=== PATIENT | female | born 1935 | race African-American/Black ===

== ENCOUNTER 2020-05-15 11:20 | Inpatient (IN) | payer MEDICARE, MEDICAID ==
[~2020-05-15] VITALS: Ht 170.2 cm; Wt 81.2 kg
[2020-05-15] MEDS ORDERED: MORPHINE SULFATE 4 MG/ML CPJ (NOT FOR IM USE) IV STA (11:34)
[2020-05-15] MEDS ORDERED: SODIUM CHLORIDE 0.9% 250 ML IV ONE (11:45)
[2020-05-15 12:14] LABS: BASOPHILS % 0.5 % (0.0-2.0); EOSINOPHILS % 1.8 % (0.0-5.0); HEMATOCRIT. 36.6 % (36.0-48.0); LYMPHOCYTES % 19.7 % (20.0-50.0); MEAN CORPUSCULAR VOLUME 90.1 fL (81.0-99.0); MEAN PLATELET VOLUME 7.8 fl (7.4-10.4); PLATELET 159 x1000/uL (130-400); RED BLOOD CELL COUNT 4.06 mill/uL (4.2-5.4); RED CELL DISTRIBUTION WIDTH 19.7 % (11.6-14.6)
[2020-05-15 12:25] LABS: PROTHROMBIN TIME 11.1 sec (9.6-11.0)
[2020-05-15 12:27] LABS: CHLORIDE 110 mEq/L (98-107)
[2020-05-15] MEDS ORDERED: ASPIRIN 81MG TABLET PO NR (13:00)
[2020-05-15] MEDS ORDERED: FUROSEMIDE 40MG/4ML VIAL IVP NR (13:00)
[2020-05-15] MEDS ORDERED: AZITHROMYCIN 500 MG in DEXT 5% WATER 250 ML IV SCH (14:00)
[2020-05-15] MEDS ORDERED: GUAIFENESIN 200MG/10ML SUGAR FREE UDC PO PRN (14:30)
[2020-05-15] MEDS ORDERED: DIPHENHYDRAMINE 50MG/ML VIAL IV PRN (14:30)
[2020-05-15] MEDS ORDERED: LORAZEPAM 2MG/ML CPJ IV PRN (14:30)
[2020-05-15] MEDS ORDERED: MAGNESIUM/ALUMINUM HYDROXIDE/SIMETHICONE 30ML UDC PO PRN (14:30)
[2020-05-15] MEDS ORDERED: ACETAMINOPHEN 325MG TABLET PO PRN (14:30)
[2020-05-15] MEDS ORDERED: ONDANSETRON HCL 4MG/2ML INJ IV PRN (14:30)
[2020-05-15] MEDS ORDERED: NA PHOS,M-B/NA PHOS,DI-BA ENEMA 118ML PR PRN (14:30)
[2020-05-15] MEDS ORDERED: IPRATROPIUM/ALBUTEROL 0.5-3(2.5)MG/3ML NEB NEB PRN (14:30)
[2020-05-15] MEDS ORDERED: DOCUSATE SODIUM 100MG CAPSULE PO PRN (14:30)
[2020-05-15] MEDS: LEVOFLOXACIN 500MG PREMIX 100 ML IV SCH ×2 (15:51→16:22)
[2020-05-15] MEDS: ENOXAPARIN 40MG/0.4ML SYR SUBCUT SCH (15:52)
[2020-05-15] MEDS ORDERED: METRONIDAZOLE 500 MG PREMIX 100 ML IV SCH (16:00)
[2020-05-15 17:35] LABS: CHLORIDE 109 mEq/L (98-107)
[2020-05-15 20:00] VITALS: BP 161/98
[2020-05-15] MEDS: CLONIDINE 0.1MG TABLET PO PRN (21:52)
[2020-05-16 02:00] VITALS: BP 151/82
[2020-05-16 04:00] VITALS: BP 156/76
[2020-05-16] MEDS ORDERED: DEXTROSE 50% WATER 50ML SYRINGE IV PRN (04:15)
[2020-05-16] MEDS: BLOOD SUGAR DIAGNOSTIC STRIP TEST SCH ×4 (05:38→20:02)
[2020-05-16] MEDS: INSULIN LISPRO 100 UNITS/ML SUBCUT SCH ×4 (05:38→20:01)
[2020-05-16 06:11] LABS: CHLORIDE 110 mEq/L (98-107)
[2020-05-16 06:28] LABS: HDL CHOLESTEROL 50 mg/dL (40-59)
[2020-05-16 06:29] LABS: T4 FREE 1.42 ng/dL (0.76-1.46)
[2020-05-16 06:31] LABS: LDL CHOLESTEROL 54 mg/dL (5-100)
[2020-05-16 06:39] LABS: BASOPHILS % 0.6 % (0.0-2.0); EOSINOPHILS % 1.3 % (0.0-5.0); HEMATOCRIT. 34.6 % (36.0-48.0); HEMOGLOBIN. 10.2 g/dL (12.0-16.0); LYMPHOCYTES % 16.4 % (20.0-50.0); MEAN CORPUSCULAR HEMOGLOBIN 27.3 pg (28.0-32.0); MEAN CORPUSCULAR VOLUME 92.2 fL (81.0-99.0); MEAN PLATELET VOLUME 8.6 fl (7.4-10.4); MONOCYTES % 11.1 % (2.0-8.0); NEUTROPHILS % 70.6 % (40.0-76.0); PLATELET 143 x1000/uL (130-400); RED BLOOD CELL COUNT 3.75 mill/uL (4.2-5.4); RED CELL DISTRIBUTION WIDTH 20.3 % (11.6-14.6)
[2020-05-16 08:00] VITALS: BP 147/68
[2020-05-16] MEDS: ASPIRIN 81MG EC TABLET PO SCH (09:13)
[2020-05-16] MEDS: FUROSEMIDE 40MG/4ML VIAL IV SCH (09:13)
[2020-05-16 12:00] VITALS: BP 169/77
[2020-05-16] MEDS: METRONIDAZOLE 500 MG PREMIX 100 ML IV SCH ×2 (12:05→19:49)
[2020-05-16 13:03] LABS: T4 FREE 1.4 ng/dL (0.76-1.46)
[2020-05-16] MEDS: HYDROCODONE/ACETAMINOPHEN 5/325MG TABLET PO PRN ×2 (14:20→18:52)
[2020-05-16] MEDS: ENOXAPARIN 40MG/0.4ML SYR SUBCUT SCH (15:41)
[2020-05-16] MEDS: LEVOFLOXACIN 250MG PREMIX 50 ML IV SCH (15:41)
[2020-05-16] MEDS: CLONIDINE 0.1MG TABLET PO PRN ×2 (15:42→21:58)
[2020-05-16 16:00] VITALS: BP 170/90
[2020-05-16 17:49] LABS: CREATINE KINASE MB FRACTION 1.4 ng/mL (0.5-3.6)
[2020-05-16 20:00] VITALS: BP 176/91
[2020-05-16] MEDS: MORPHINE SULFATE 2 MG/ML CPJ (NOT FOR IM USE) IV PRN (21:47)
[2020-05-16 23:53] LABS: CREATINE KINASE MB FRACTION 1.2 ng/mL (0.5-3.6)
[2020-05-17] VITALS: BP 136/62
[2020-05-17] MEDS: METRONIDAZOLE 500 MG PREMIX 100 ML IV SCH ×3 (02:37→18:04)
[2020-05-17] MEDS: MORPHINE SULFATE 2 MG/ML CPJ (NOT FOR IM USE) IV PRN ×2 (03:05→08:31)
[2020-05-17 04:00] VITALS: BP 184/95
[2020-05-17] MEDS: CLONIDINE 0.1MG TABLET PO PRN (05:15)
[2020-05-17] MEDS: BLOOD SUGAR DIAGNOSTIC STRIP TEST SCH ×4 (06:15→20:05)
[2020-05-17 07:07] LABS: BASOPHILS % 0.8 % (0.0-2.0); EOSINOPHILS % 2.2 % (0.0-5.0); HEMATOCRIT. 32.4 % (36.0-48.0); HEMOGLOBIN. 9.9 g/dL (12.0-16.0); LYMPHOCYTES % 16.8 % (20.0-50.0); MEAN CORPUSCULAR HEMOGLOBIN 27.2 pg (28.0-32.0); MEAN CORPUSCULAR VOLUME 88.9 fL (81.0-99.0); MONOCYTES % 11.9 % (2.0-8.0); NEUTROPHILS % 68.3 % (40.0-76.0); PLATELET 139 x1000/uL (130-400); RED BLOOD CELL COUNT 3.64 mill/uL (4.2-5.4); RED CELL DISTRIBUTION WIDTH 19.5 % (11.6-14.6)
[2020-05-17 07:40] LABS: CHLORIDE 108 mEq/L (98-107)
[2020-05-17] MEDS: INSULIN LISPRO 100 UNITS/ML SUBCUT SCH ×4 (07:40→20:05)
[2020-05-17 08:00] VITALS: BP 124/82
[2020-05-17 08:00] LABS: CREATINE KINASE 39 IU/L (26-192)
[2020-05-17 08:06] LABS: CREATINE KINASE MB FRACTION 1.3 ng/mL (0.5-3.6)
[2020-05-17] MEDS: FUROSEMIDE 40MG/4ML VIAL IV SCH ×2 (08:28→20:05)
[2020-05-17] MEDS: ASPIRIN 81MG EC TABLET PO SCH ×2 (08:28→13:13)
[2020-05-17] MEDS ORDERED: ASPIRIN 81MG TABLET PO SCH (09:00)
[2020-05-17] MEDS: LOSARTAN POTASSIUM 25 MG TABLET PO SCH (10:22)
[2020-05-17 12:00] VITALS: BP 170/81
[2020-05-17] MEDS ORDERED: METOLAZONE 2.5MG TABLET PO SCH (14:00)
[2020-05-17] MEDS: LEVOFLOXACIN 250MG PREMIX 50 ML IV SCH (14:51)
[2020-05-17] MEDS: ENOXAPARIN 40MG/0.4ML SYR SUBCUT SCH (14:52)
[2020-05-17 16:00] VITALS: BP 142/76
[2020-05-17 20:00] VITALS: BP 163/73
[2020-05-17] MEDS: CARVEDILOL 6.25 MG TABLET PO SCH (20:04)
[2020-05-17] MEDS ORDERED: ATORVASTATIN CALCIUM 40MG TABLET PO SCH (21:00)
[2020-05-18] VITALS (7 sets, daily range): BP systolic 144–173; BP diastolic 65–92
[2020-05-18] MEDS: METRONIDAZOLE 500 MG PREMIX 100 ML IV SCH ×3 (02:17→11:00)
[2020-05-18] MEDS: BLOOD SUGAR DIAGNOSTIC STRIP TEST SCH ×2 (05:56→12:07)
[2020-05-18 07:24] LABS: BASOPHILS % 1.1 % (0.0-2.0); EOSINOPHILS % 1.6 % (0.0-5.0); HEMATOCRIT. 33.1 % (36.0-48.0); HEMOGLOBIN. 10.1 g/dL (12.0-16.0); LYMPHOCYTES % 16.3 % (20.0-50.0); MEAN CORPUSCULAR HEMOGLOBIN 26.7 pg (28.0-32.0); MEAN CORPUSCULAR VOLUME 87.4 fL (81.0-99.0); MEAN PLATELET VOLUME 8.4 fl (7.4-10.4); MONOCYTES % 13.3 % (2.0-8.0); NEUTROPHILS % 67.7 % (40.0-76.0); PLATELET 156 x1000/uL (130-400); RED BLOOD CELL COUNT 3.78 mill/uL (4.2-5.4); RED CELL DISTRIBUTION WIDTH 19.1 % (11.6-14.6)
[2020-05-18] MEDS: INSULIN LISPRO 100 UNITS/ML SUBCUT SCH ×2 (07:40→12:19)
[2020-05-18] MEDS: FUROSEMIDE 40MG/4ML VIAL IV SCH ×2 (09:00→09:06)
[2020-05-18] MEDS: LOSARTAN POTASSIUM 25 MG TABLET PO SCH (09:05)
[2020-05-18] MEDS: ASPIRIN 81MG EC TABLET PO SCH (09:06)
[2020-05-18] MEDS: CARVEDILOL 6.25 MG TABLET PO SCH ×2 (09:06→20:41)
[2020-05-18] MEDS ORDERED: METOLAZONE 2.5MG TABLET PO NR (11:23)
[2020-05-18] MEDS ORDERED: POTASSIUM CHLORIDE 20MEQ TABLET SR PO NR (11:30)
[2020-05-18] MEDS ORDERED: METR-167 MT (11:56)
[2020-05-18] MEDS ORDERED: LEVO500T89 MT (11:56)
[2020-05-18] MEDS: HYDROCODONE/ACETAMINOPHEN 5/325MG TABLET PO PRN (13:38)
[2020-05-18] MEDS ORDERED: LEVOFLOXACIN 250MG TABLET PO SCH (15:00)
[2020-05-18] MEDS: CLONIDINE 0.1MG TABLET PO PRN (18:36)
[2020-05-18] MEDS ORDERED: METRONIDAZOLE 500MG TABLET PO SCH (19:00)
[2020-05-19] MEDS ORDERED: LOSARTAN POTASSIUM 25 MG TABLET PO SCH (09:00)
== END 2020-05-18 21:30 | disposition home health service (06) | DRG 291 ==
LOC: ER 11:20 → 7WST 14:18 → EDBEDREQ 14:28 → EDBEDREQSVC 14:28 → ENRESERV 16:32 → 8WST 05-16 00:02
PROVIDERS: ADMIT Internal Medicine; ATTEND Internal Medicine
DX: I13.0 Hypertensive heart and chronic kidney disease with heart failure and stage 1 through stage 4 chronic kidney disease, or unspecified chronic kidney disease (principal); J96.20 Acute and chronic respiratory failure, unspecified whether with hypoxia or hypercapnia; G93.41 Metabolic encephalopathy; I50.23 Acute on chronic systolic (congestive) heart failure; R65.10 Systemic inflammatory response syndrome (SIRS) of non-infectious origin without acute organ dysfunction; E46 Unspecified protein-calorie malnutrition; K52.9 Noninfective gastroenteritis and colitis, unspecified; K57.30 Diverticulosis of large intestine without perforation or abscess without bleeding; D64.9 Anemia, unspecified; R26.89 Other abnormalities of gait and mobility; E78.5 Hyperlipidemia, unspecified; I25.10 Atherosclerotic heart disease of native coronary artery without angina pectoris; I27.20 Pulmonary hypertension, unspecified; K44.9 Diaphragmatic hernia without obstruction or gangrene; Z20.822 Contact with and (suspected) exposure to COVID-19; E11.22 Type 2 diabetes mellitus with diabetic chronic kidney disease; I25.5 Ischemic cardiomyopathy; N18.9 Chronic kidney disease, unspecified; S81.802A Unspecified open wound, left lower leg, initial encounter; E11.51 Type 2 diabetes mellitus with diabetic peripheral angiopathy without gangrene; G47.33 Obstructive sleep apnea (adult) (pediatric); Z60.2 Problems related to living alone; Z89.511 Acquired absence of right leg below knee; I25.2 Old myocardial infarction; Z86.73 Personal history of transient ischemic attack (TIA), and cerebral infarction without residual deficits; Z87.891 Personal history of nicotine dependence; Z88.0 Allergy status to penicillin; X58.XXXA Exposure to other specified factors, initial encounter; Y93.89 Activity, other specified; Y92.89 Other specified places as the place of occurrence of the external cause; Y99.8 Other external cause status; Z68.28 Body mass index [BMI] 28.0-28.9, adult; J44.9 Chronic obstructive pulmonary disease, unspecified; R60.1 Generalized edema
CPT/HCPCS: 36415; 71045; 74176; 76604; 80048; 80053; 80061; 82550; 82553; 82962; 83036; 83605; 83615; 83735; 83880; 84145; 84439; 84443; 84484; 85025; 85379; 85651; 86038; 86430; 93005; 93306; 93970; 93971; 94640; 97162; 99291; J0456; J1200; J1650; J1940; J1956; J2270; J3490; J7040; J7050; J7060; U0003

== ENCOUNTER 2020-09-23 08:03 | Inpatient (IN) | payer MEDICARE, MEDICAID ==
[~2020-09-23] VITALS: Ht 162.6 cm; Wt 57.7 kg
[~2020-09-23 08:03] MED LIST: LEVO500T89 MT; METR-167 MT
[2020-09-23 08:58] LABS: CHLORIDE 110 mEq/L (98-107)
[2020-09-23 09:02] LABS: BASOPHILS % 0.7 % (0.0-2.0); EOSINOPHILS % 0.8 % (0.0-5.0); HEMATOCRIT. 37.4 % (36.0-48.0); HEMOGLOBIN. 12.1 g/dL (12.0-16.0); LYMPHOCYTES % 12.1 % (20.0-50.0); MEAN CORPUSCULAR HEMOGLOBIN 29.9 pg (28.0-32.0); MEAN CORPUSCULAR VOLUME 92.8 fL (81.0-99.0); MEAN PLATELET VOLUME 8.3 fl (7.4-10.4); NEUTROPHILS % 78.4 % (40.0-76.0); PLATELET 211 x1000/uL (130-400); RED BLOOD CELL COUNT 4.03 mill/uL (4.2-5.4); RED CELL DISTRIBUTION WIDTH 16.7 % (11.6-14.6)
[2020-09-23] MEDS ORDERED: FUROSEMIDE 40MG/4ML VIAL IV ONE (10:00)
[2020-09-23] MEDS: ASPIRIN 81MG TABLET PO ONE ×2 (10:00→11:08)
[2020-09-23] MEDS ORDERED: ENOXAPARIN 100MG/ML SYR SUBCUT ONE (10:00)
[2020-09-23] MEDS ORDERED: LORAZEPAM 1MG TABLET PO ONE (11:00)
[2020-09-23 11:14] LABS: BG BASE EXCESS -1.3 mmol/L (-2.0-2.0); BG CARBOXYHEMOGLOBIN 0.3 % (0.5-1.5); BG HCO3 ACT 26.7 mmol/L (22.0-26.0); BG METHEMOGLOBIN 0.3 % (0.0-1.5); BG OXYHEMOGLOBIN 95.4 % (94.0-97.0); BG PCO2 59.4 mmHg (35.0-45.0); BG PO2 93.7 mmHg (75.0-100.0); BG SAMPLE SITE RIGHT RADIAL; BG VENT MODE NASAL CANNULA
[2020-09-23] MEDS ORDERED: CARVEDILOL 6.25 MG TABLET PO NR (17:00)
[2020-09-23] MEDS ORDERED: IPRATROPIUM/ALBUTEROL 0.5-3(2.5)MG/3ML NEB NEB PRN (19:00)
[2020-09-23] MEDS ORDERED: MAGNESIUM/ALUMINUM HYDROXIDE/SIMETHICONE 30ML UDC PO PRN (19:00)
[2020-09-23] MEDS ORDERED: DIPHENHYDRAMINE 50MG/ML VIAL IV PRN (19:00)
[2020-09-23] MEDS ORDERED: DEXTROSE 50% WATER 50ML SYRINGE IV PRN (19:00)
[2020-09-23] MEDS ORDERED: ONDANSETRON HCL 4MG/2ML INJ IV PRN (19:00)
[2020-09-23] MEDS ORDERED: ACETAMINOPHEN 325MG TABLET PO PRN ×2 (19:00)
[2020-09-23] MEDS ORDERED: HYDRALAZINE 20MG/ML VIAL IV PRN ×3 (19:00→19:15)
[2020-09-23] MEDS ORDERED: ZOLPIDEM TARTRATE 5MG TABLET PO PRN (19:00)
[2020-09-23] MEDS ORDERED: LOSARTAN POTASSIUM 50 MG TABLET PO NR (19:13)
[2020-09-23] MEDS ORDERED: HYDRALAZINE 20MG/ML VIAL IV NR (19:15)
[2020-09-23] MEDS: IPRATROPIUM/ALBUTEROL 0.5-3(2.5)MG/3ML NEB HHN SCH (19:37)
[2020-09-23 20:00] VITALS: BP 186/122
[2020-09-23] MEDS: FUROSEMIDE 40MG/4ML VIAL IVP SCH (20:23)
[2020-09-23] MEDS: CARVEDILOL 6.25 MG TABLET PO SCH (20:24)
[2020-09-23] MEDS: ATORVASTATIN CALCIUM 40MG TABLET PO SCH (20:24)
[2020-09-23] MEDS: BLOOD SUGAR DIAGNOSTIC STRIP TEST SCH (20:46)
[2020-09-23] MEDS: INSULIN LISPRO 100 UNITS/ML SUBCUT SCH (20:46)
[2020-09-23 21:00] VITALS: BP 186/122
[2020-09-23] MEDS ORDERED: FUROSEMIDE 40MG/4ML VIAL IVP SCH (22:00)
[2020-09-23] MEDS: SODIUM CHLORIDE 0.9% INJ 3ML FLUSH IVF SCH (22:00)
[2020-09-24] VITALS (7 sets, daily range): BP systolic 116–137; BP diastolic 59–73
[2020-09-24] MEDS: IPRATROPIUM/ALBUTEROL 0.5-3(2.5)MG/3ML NEB HHN SCH ×4 (02:19→21:17)
[2020-09-24] MEDS: FUROSEMIDE 40MG/4ML VIAL IVP SCH ×3 (02:52→18:43)
[2020-09-24] MEDS: BLOOD SUGAR DIAGNOSTIC STRIP TEST SCH ×4 (05:45→21:01)
[2020-09-24] MEDS: INSULIN LISPRO 100 UNITS/ML SUBCUT SCH ×4 (05:45→21:00)
[2020-09-24] MEDS: SODIUM CHLORIDE 0.9% INJ 3ML FLUSH IVF SCH ×2 (06:18→13:21)
[2020-09-24 07:26] LABS: BASOPHILS % 0.5 % (0.0-2.0); CHLORIDE 109 mEq/L (98-107); EOSINOPHILS % 0.4 % (0.0-5.0); HEMATOCRIT. 37.2 % (36.0-48.0); HEMOGLOBIN. 11.9 g/dL (12.0-16.0); LYMPHOCYTES % 14.3 % (20.0-50.0); MEAN CORPUSCULAR HEMOGLOBIN 29.5 pg (28.0-32.0); MEAN PLATELET VOLUME 8.6 fl (7.4-10.4); MONOCYTES % 8.4 % (2.0-8.0); NEUTROPHILS % 76.4 % (40.0-76.0); PLATELET 201 x1000/uL (130-400); RED BLOOD CELL COUNT 4.04 mill/uL (4.2-5.4); RED CELL DISTRIBUTION WIDTH 16.6 % (11.6-14.6)
[2020-09-24] MEDS ORDERED: LOSARTAN POTASSIUM 25 MG TABLET PO SCH (09:00)
[2020-09-24] MEDS ORDERED: ENOXAPARIN 40MG/0.4ML SYR SUBCUT SCH (09:00)
[2020-09-24] MEDS: ASPIRIN 81MG EC TABLET PO SCH (09:53)
[2020-09-24] MEDS: CARVEDILOL 6.25 MG TABLET PO SCH ×2 (09:53→21:00)
[2020-09-24] MEDS ORDERED: POTASSIUM CHLORIDE 20MEQ TABLET SR PO NR (10:45)
[2020-09-24] MEDS ORDERED: LOSARTAN POTASSIUM 25 MG TABLET PO NR (10:45)
[2020-09-24] MEDS ORDERED: MAGNESIUM 1 G PREMIX 100 ML IV SCH (12:00)
[2020-09-24] MEDS: ATORVASTATIN CALCIUM 40MG TABLET PO SCH (21:01)
[2020-09-25] VITALS (8 sets, daily range): BP systolic 105–171; BP diastolic 56–96
[2020-09-25] MEDS: IPRATROPIUM/ALBUTEROL 0.5-3(2.5)MG/3ML NEB HHN SCH ×4 (02:15→20:55)
[2020-09-25] MEDS: SODIUM CHLORIDE 0.9% INJ 3ML FLUSH IVF SCH ×4 (03:46→21:02)
[2020-09-25] MEDS: FUROSEMIDE 40MG/4ML VIAL IVP SCH ×3 (03:47→18:17)
[2020-09-25] MEDS: GUAIFENESIN 200MG/10ML SUGAR FREE UDC PO PRN ×2 (03:54→08:41)
[2020-09-25] MEDS: BLOOD SUGAR DIAGNOSTIC STRIP TEST SCH ×4 (05:57→20:29)
[2020-09-25] MEDS: INSULIN LISPRO 100 UNITS/ML SUBCUT SCH ×4 (05:57→20:29)
[2020-09-25 08:15] LABS: BASOPHILS % 0.6 % (0.0-2.0); HEMATOCRIT. 36.4 % (36.0-48.0); HEMOGLOBIN. 11.6 g/dL (12.0-16.0); LYMPHOCYTES % 18.5 % (20.0-50.0); MEAN CORPUSCULAR HEMOGLOBIN 29.7 pg (28.0-32.0); MEAN CORPUSCULAR VOLUME 93.4 fL (81.0-99.0); MEAN PLATELET VOLUME 9.1 fl (7.4-10.4); MONOCYTES % 10.2 % (2.0-8.0); NEUTROPHILS % 69.7 % (40.0-76.0); PLATELET 200 x1000/uL (130-400); RED BLOOD CELL COUNT 3.89 mill/uL (4.2-5.4); RED CELL DISTRIBUTION WIDTH 16.4 % (11.6-14.6)
[2020-09-25] MEDS: LOSARTAN POTASSIUM 50 MG TABLET PO SCH (08:41)
[2020-09-25] MEDS: CARVEDILOL 6.25 MG TABLET PO SCH ×2 (08:41→20:59)
[2020-09-25] MEDS: ENOXAPARIN 30MG/0.3ML SYR SUBCUT SCH (08:41)
[2020-09-25] MEDS: ASPIRIN 81MG EC TABLET PO SCH (08:41)
[2020-09-25] MEDS ORDERED: MAGNESIUM HYDROXIDE 400MG/5ML 30ML UDC PO NR (17:30)
[2020-09-25] MEDS ORDERED: BISACODYL 10MG SUPP PR NR (17:30)
[2020-09-25] MEDS: CLONIDINE 0.1MG TABLET PO PRN (17:45)
[2020-09-25] MEDS: ATORVASTATIN CALCIUM 40MG TABLET PO SCH (21:02)
[2020-09-26] VITALS (7 sets, daily range): BP systolic 115–165; BP diastolic 65–84
[2020-09-26] MEDS: IPRATROPIUM/ALBUTEROL 0.5-3(2.5)MG/3ML NEB HHN SCH ×3 (02:12→15:02)
[2020-09-26] MEDS: FUROSEMIDE 40MG/4ML VIAL IVP SCH ×2 (02:38→11:35)
[2020-09-26] MEDS: GUAIFENESIN 200MG/10ML SUGAR FREE UDC PO PRN (02:38)
[2020-09-26] MEDS: CLONIDINE 0.1MG TABLET PO PRN (02:38)
[2020-09-26] MEDS: SODIUM CHLORIDE 0.9% INJ 3ML FLUSH IVF SCH ×2 (06:00→14:26)
[2020-09-26] MEDS: INSULIN LISPRO 100 UNITS/ML SUBCUT SCH ×3 (06:25→17:40)
[2020-09-26] MEDS: BLOOD SUGAR DIAGNOSTIC STRIP TEST SCH ×3 (06:25→18:08)
[2020-09-26 07:03] LABS: BASOPHILS % 0.6 % (0.0-2.0); EOSINOPHILS % 1.2 % (0.0-5.0); HEMOGLOBIN. 11.3 g/dL (12.0-16.0); LYMPHOCYTES % 20.7 % (20.0-50.0); MEAN CORPUSCULAR HEMOGLOBIN 29.6 pg (28.0-32.0); MEAN CORPUSCULAR VOLUME 91.6 fL (81.0-99.0); MEAN PLATELET VOLUME 8.7 fl (7.4-10.4); MONOCYTES % 11.8 % (2.0-8.0); NEUTROPHILS % 65.7 % (40.0-76.0); PLATELET 216 x1000/uL (130-400); RED BLOOD CELL COUNT 3.82 mill/uL (4.2-5.4); RED CELL DISTRIBUTION WIDTH 16.5 % (11.6-14.6)
[2020-09-26] MEDS: ASPIRIN 81MG EC TABLET PO SCH (09:27)
[2020-09-26] MEDS: CARVEDILOL 6.25 MG TABLET PO SCH (09:27)
[2020-09-26] MEDS: LOSARTAN POTASSIUM 50 MG TABLET PO SCH (09:27)
[2020-09-26] MEDS: ENOXAPARIN 30MG/0.3ML SYR SUBCUT SCH (09:28)
== END 2020-09-26 19:00 | disposition home or self-care (01) | DRG 291 ==
LOC: ER 08:03 → EDBEDREQTM 11:44 → EDBEDREQ 11:44 → ENRESERV 15:32 → 8WST 18:26
PROVIDERS: ADMIT Internal Medicine; ATTEND Internal Medicine
DX: I11.0 Hypertensive heart disease with heart failure (principal); J96.01 Acute respiratory failure with hypoxia; J44.1 Chronic obstructive pulmonary disease with (acute) exacerbation; I50.23 Acute on chronic systolic (congestive) heart failure; I25.10 Atherosclerotic heart disease of native coronary artery without angina pectoris; I27.20 Pulmonary hypertension, unspecified; F17.200 Nicotine dependence, unspecified, uncomplicated; D64.9 Anemia, unspecified; E11.51 Type 2 diabetes mellitus with diabetic peripheral angiopathy without gangrene; Z20.822 Contact with and (suspected) exposure to COVID-19; I25.5 Ischemic cardiomyopathy; Z60.2 Problems related to living alone; Z89.511 Acquired absence of right leg below knee; I25.2 Old myocardial infarction; Z86.73 Personal history of transient ischemic attack (TIA), and cerebral infarction without residual deficits; Z88.0 Allergy status to penicillin; Z88.5 Allergy status to narcotic agent; Z79.82 Long term (current) use of aspirin; K57.90 Diverticulosis of intestine, part unspecified, without perforation or abscess without bleeding; Z71.6 Tobacco abuse counseling
CPT/HCPCS: 36415; 36600; 71045; 80048; 80053; 82375; 82805; 82962; 83735; 83880; 84484; 85025; 87426; 93005; 93306; 99291; J0360; J1200; J1650; J1940; J3475

== ENCOUNTER 2020-10-18 19:30 | Emergency (ER) | payer MEDICARE, MEDICAID ==
[~2020-10-18] VITALS: Ht 167.6 cm; Wt 70.0 kg
[2020-10-18 23:46] LABS: BASOPHILS % 0.7 % (0.0-2.0); EOSINOPHILS % 1.9 % (0.0-5.0); HEMATOCRIT. 38.1 % (36.0-48.0); HEMOGLOBIN. 12.4 g/dL (12.0-16.0); MEAN CORPUSCULAR HEMOGLOBIN 30.4 pg (28.0-32.0); MEAN CORPUSCULAR VOLUME 93.7 fL (81.0-99.0); MEAN PLATELET VOLUME 8.2 fl (7.4-10.4); MONOCYTES % 8.3 % (2.0-8.0); NEUTROPHILS % 64.1 % (40.0-76.0); PLATELET 167 x1000/uL (130-400); RED BLOOD CELL COUNT 4.06 mill/uL (4.2-5.4); RED CELL DISTRIBUTION WIDTH 16.9 % (11.6-14.6)
[2020-10-18 23:58] LABS: CHLORIDE 110 mEq/L (98-107)
[2020-10-19] MEDS ORDERED: FUROSEMIDE 20MG/2ML VIAL IVP ONE (01:15)
[2020-10-19 10:27] VITALS: BP 167/88
== END 2020-10-19 11:05 | disposition home or self-care (01) ==
LOC: ER 19:30
DX: R06.02 Shortness of breath (principal); I50.9 Heart failure, unspecified; J44.9 Chronic obstructive pulmonary disease, unspecified; I49.3 Ventricular premature depolarization; R03.0 Elevated blood-pressure reading, without diagnosis of hypertension; Z99.81 Dependence on supplemental oxygen
CPT/HCPCS: 36415; 71045; 80053; 83880; 85025; 93005; 96374; 99285; J1940

== ENCOUNTER 2020-11-07 14:33 | Inpatient (IN) | payer MEDICARE, MEDICAID ==
[~2020-11-07] VITALS: Ht 162.6 cm; Wt 62.6 kg
[2020-11-07 15:53] LABS: BASOPHILS % 0.7 % (0.0-2.0); EOSINOPHILS % 1.2 % (0.0-5.0); HEMATOCRIT. 34.6 % (36.0-48.0); HEMOGLOBIN. 11.6 g/dL (12.0-16.0); LYMPHOCYTES % 12.7 % (20.0-50.0); MEAN CORPUSCULAR HEMOGLOBIN 30.9 pg (28.0-32.0); MEAN CORPUSCULAR VOLUME 92.2 fL (81.0-99.0); MEAN PLATELET VOLUME 7.9 fl (7.4-10.4); MONOCYTES % 8.5 % (2.0-8.0); NEUTROPHILS % 76.9 % (40.0-76.0); PLATELET 187 x1000/uL (130-400); RED BLOOD CELL COUNT 3.75 mill/uL (4.2-5.4); RED CELL DISTRIBUTION WIDTH 17.4 % (11.6-14.6)
[2020-11-07 16:01] LABS: CHLORIDE 110 mEq/L (98-107)
[2020-11-07 16:05] LABS: PROTHROMBIN TIME 10.3 sec (9.6-11.0)
[2020-11-07] MEDS ORDERED: FUROSEMIDE 40MG/4ML VIAL IVP ONE (18:00)
[2020-11-07] MEDS ORDERED: MAGNESIUM/ALUMINUM HYDROXIDE/SIMETHICONE 30ML UDC PO PRN (18:15)
[2020-11-07] MEDS ORDERED: ACETAMINOPHEN 325MG TABLET PO PRN ×2 (18:15)
[2020-11-07] MEDS ORDERED: DOCUSATE SODIUM 100MG CAPSULE PO PRN (18:15)
[2020-11-07] MEDS ORDERED: ONDANSETRON HCL 4MG/2ML INJ IV PRN (18:15)
[2020-11-07] MEDS: FUROSEMIDE 40MG/4ML VIAL IV SCH (18:15)
[2020-11-07] MEDS: ASPIRIN 325MG EC TABLET PO ONE ×2 (18:17→18:27)
[2020-11-07] MEDS ORDERED: DEXTROSE 50% WATER 50ML SYRINGE IV PRN (19:00)
[2020-11-07] MEDS: CARVEDILOL 6.25 MG TABLET PO SCH (20:38)
[2020-11-07] MEDS: POTASSIUM CHLORIDE 20MEQ TABLET SR PO SCH (20:38)
[2020-11-07] MEDS: INSULIN LISPRO 100 UNITS/ML SUBCUT SCH (21:00)
[2020-11-07] MEDS: BLOOD SUGAR DIAGNOSTIC STRIP TEST SCH (21:22)
[2020-11-07] MEDS: ENOXAPARIN 40MG/0.4ML SYR SUBCUT SCH (21:30)
[2020-11-07] MEDS: ATORVASTATIN CALCIUM 20MG TABLET PO SCH (21:31)
[2020-11-07] MEDS: CLONIDINE 0.1MG TABLET PO PRN (21:39)
[2020-11-07 22:29] VITALS: BP 140/86
[2020-11-07 23:45] VITALS: BP 140/86
[2020-11-08 04:00] VITALS: BP 109/88
[2020-11-08 05:45] LABS: BASOPHILS % 0.4 % (0.0-2.0); EOSINOPHILS % 1.6 % (0.0-5.0); HEMATOCRIT. 36.6 % (36.0-48.0); HEMOGLOBIN. 11.7 g/dL (12.0-16.0); LYMPHOCYTES % 8.6 % (20.0-50.0); MEAN CORPUSCULAR HEMOGLOBIN 30.4 pg (28.0-32.0); MEAN CORPUSCULAR VOLUME 95.3 fL (81.0-99.0); MEAN PLATELET VOLUME 8.8 fl (7.4-10.4); MONOCYTES % 7.7 % (2.0-8.0); NEUTROPHILS % 81.7 % (40.0-76.0); PLATELET 176 x1000/uL (130-400); RED BLOOD CELL COUNT 3.84 mill/uL (4.2-5.4); RED CELL DISTRIBUTION WIDTH 17.4 % (11.6-14.6)
[2020-11-08 05:55] LABS: CHLORIDE 108 mEq/L (98-107)
[2020-11-08] MEDS: BLOOD SUGAR DIAGNOSTIC STRIP TEST SCH ×4 (05:56→20:58)
[2020-11-08] MEDS: INSULIN LISPRO 100 UNITS/ML SUBCUT SCH ×4 (05:56→20:57)
[2020-11-08 06:11] LABS: LDL CHOLESTEROL 86 mg/dL (5-100)
[2020-11-08 06:12] LABS: CREATINE KINASE 65 IU/L (26-192); HDL CHOLESTEROL 70 mg/dL (40-59)
[2020-11-08 08:00] VITALS: BP_SYST 169; BP_SYST 179; BP_DIAS 106; BP_DIAS 64
[2020-11-08] MEDS: POTASSIUM CHLORIDE 20MEQ TABLET SR PO SCH (09:09)
[2020-11-08] MEDS: ASPIRIN 81MG EC TABLET PO SCH (09:09)
[2020-11-08] MEDS: FUROSEMIDE 40MG/4ML VIAL IV SCH ×2 (09:10→17:51)
[2020-11-08] MEDS: CARVEDILOL 6.25 MG TABLET PO SCH ×2 (09:24→17:51)
[2020-11-08] MEDS: CLONIDINE 0.1MG TABLET PO PRN (09:25)
[2020-11-08] MEDS ORDERED: IPRATROPIUM/ALBUTEROL 0.5-3(2.5)MG/3ML NEB HHN PRN (10:00)
[2020-11-08] MEDS: LOSARTAN POTASSIUM 100 MG TABLET PO SCH (10:00)
[2020-11-08] MEDS ORDERED: HYDRALAZINE 20MG/ML VIAL IV NR (10:00)
[2020-11-08] MEDS ORDERED: HYDRALAZINE 20MG/ML VIAL IV PRN (10:00)
[2020-11-08 12:00] VITALS: BP 139/78
[2020-11-08 16:00] VITALS: BP 137/61
[2020-11-08 20:00] VITALS: BP 127/70
[2020-11-08] MEDS: ATORVASTATIN CALCIUM 20MG TABLET PO SCH (21:01)
[2020-11-08] MEDS: ENOXAPARIN 40MG/0.4ML SYR SUBCUT SCH (21:02)
[2020-11-08] MEDS: METHYLPREDNISOLONE SOD SUCC 40 MG/ML VIAL IV SCH (23:46)
[2020-11-09 00:12] VITALS: BP 119/77
[2020-11-09] MEDS: IPRATROPIUM/ALBUTEROL 0.5-3(2.5)MG/3ML NEB HHN SCH ×6 (01:35→20:09)
[2020-11-09 04:00] VITALS: BP 141/74
[2020-11-09 05:43] LABS: BASOPHILS % 0.2 % (0.0-2.0); EOSINOPHILS % 0.1 % (0.0-5.0); HEMATOCRIT. 33.8 % (36.0-48.0); HEMOGLOBIN. 11.2 g/dL (12.0-16.0); LYMPHOCYTES % 8.8 % (20.0-50.0); MEAN CORPUSCULAR HEMOGLOBIN 30.7 pg (28.0-32.0); MEAN CORPUSCULAR VOLUME 92.5 fL (81.0-99.0); MEAN PLATELET VOLUME 8.3 fl (7.4-10.4); MONOCYTES % 2.3 % (2.0-8.0); NEUTROPHILS % 88.6 % (40.0-76.0); PLATELET 178 x1000/uL (130-400); RED BLOOD CELL COUNT 3.66 mill/uL (4.2-5.4); RED CELL DISTRIBUTION WIDTH 17.3 % (11.6-14.6)
[2020-11-09] MEDS: BLOOD SUGAR DIAGNOSTIC STRIP TEST SCH ×4 (06:02→20:19)
[2020-11-09] MEDS: INSULIN LISPRO 100 UNITS/ML SUBCUT SCH ×4 (06:02→20:19)
[2020-11-09] MEDS: METHYLPREDNISOLONE SOD SUCC 40 MG/ML VIAL IV SCH ×3 (06:02→22:18)
[2020-11-09 08:00] VITALS: BP 132/75
[2020-11-09] MEDS: LOSARTAN POTASSIUM 100 MG TABLET PO SCH (09:00)
[2020-11-09] MEDS: ASPIRIN 81MG EC TABLET PO SCH (09:07)
[2020-11-09] MEDS: CARVEDILOL 6.25 MG TABLET PO SCH ×2 (09:07→16:27)
[2020-11-09] MEDS: POTASSIUM CHLORIDE 20MEQ TABLET SR PO SCH (09:07)
[2020-11-09] MEDS: FUROSEMIDE 40MG/4ML VIAL IV SCH ×2 (09:07→16:27)
[2020-11-09 12:00] VITALS: BP 158/94
[2020-11-09 16:00] VITALS: BP 145/58
[2020-11-09] MEDS: CLONIDINE 0.1MG TABLET PO PRN (16:21)
[2020-11-09] MEDS ORDERED: DOCUSATE SODIUM 100MG CAPSULE PEG PRN (17:15)
[2020-11-09] MEDS ORDERED: DOCUSATE SODIUM SUGAR FREE 100MG/10ML UDC PO PRN (17:30)
[2020-11-09 20:00] VITALS: BP 146/71
[2020-11-09] MEDS: ENOXAPARIN 30MG/0.3ML SYR SUBCUT SCH (20:23)
[2020-11-09] MEDS: ATORVASTATIN CALCIUM 20MG TABLET PO SCH (20:23)
[2020-11-10] VITALS: BP 153/80
[2020-11-10] MEDS: IPRATROPIUM/ALBUTEROL 0.5-3(2.5)MG/3ML NEB HHN SCH ×3 (01:03→16:00)
[2020-11-10 04:00] VITALS: BP 151/81
[2020-11-10] MEDS: INSULIN LISPRO 100 UNITS/ML SUBCUT SCH ×4 (05:58→21:30)
[2020-11-10] MEDS: BLOOD SUGAR DIAGNOSTIC STRIP TEST SCH ×4 (05:58→21:31)
[2020-11-10] MEDS: METHYLPREDNISOLONE SOD SUCC 40 MG/ML VIAL IV SCH ×3 (06:19→21:29)
[2020-11-10 07:29] LABS: BASOPHILS % 0.2 % (0.0-2.0); HEMATOCRIT. 34.3 % (36.0-48.0); HEMOGLOBIN. 11.4 g/dL (12.0-16.0); LYMPHOCYTES % 9.3 % (20.0-50.0); MEAN CORPUSCULAR HEMOGLOBIN 30.3 pg (28.0-32.0); MEAN CORPUSCULAR VOLUME 90.9 fL (81.0-99.0); MEAN PLATELET VOLUME 8.7 fl (7.4-10.4); MONOCYTES % 3.7 % (2.0-8.0); NEUTROPHILS % 86.8 % (40.0-76.0); PLATELET 201 x1000/uL (130-400); RED BLOOD CELL COUNT 3.77 mill/uL (4.2-5.4); RED CELL DISTRIBUTION WIDTH 17.3 % (11.6-14.6)
[2020-11-10 08:00] VITALS: BP 169/88
[2020-11-10] MEDS: ASPIRIN 81MG EC TABLET PO SCH (09:39)
[2020-11-10] MEDS: FUROSEMIDE 40MG/4ML VIAL IV SCH ×2 (09:39→17:00)
[2020-11-10] MEDS: CARVEDILOL 6.25 MG TABLET PO SCH ×2 (09:39→17:15)
[2020-11-10] MEDS: POTASSIUM CHLORIDE 20MEQ TABLET SR PO SCH (09:39)
[2020-11-10] MEDS: LOSARTAN POTASSIUM 50 MG TABLET PO SCH (09:39)
[2020-11-10 12:00] VITALS: BP 175/73
[2020-11-10] MEDS: CLONIDINE 0.1MG TABLET PO PRN ×2 (12:50→17:16)
[2020-11-10 16:00] VITALS: BP 162/81
[2020-11-10] MEDS: LACTULOSE 20G/30ML UDC PO SCH (18:00)
[2020-11-10 20:00] VITALS: BP 149/81
[2020-11-10] MEDS: ATORVASTATIN CALCIUM 20MG TABLET PO SCH (21:29)
[2020-11-10] MEDS: ENOXAPARIN 30MG/0.3ML SYR SUBCUT SCH (21:33)
[2020-11-11] VITALS: BP 131/74
[2020-11-11 04:00] VITALS: BP 168/83
[2020-11-11] MEDS: BLOOD SUGAR DIAGNOSTIC STRIP TEST SCH (05:18)
[2020-11-11] MEDS: METHYLPREDNISOLONE SOD SUCC 40 MG/ML VIAL IV SCH (05:18)
[2020-11-11] MEDS: CLONIDINE 0.1MG TABLET PO PRN (05:18)
[2020-11-11] MEDS: INSULIN LISPRO 100 UNITS/ML SUBCUT SCH (07:40)
[2020-11-11 08:00] VITALS: BP 156/86
[2020-11-11] MEDS: IPRATROPIUM/ALBUTEROL 0.5-3(2.5)MG/3ML NEB HHN SCH ×2 (08:24→12:39)
[2020-11-11] MEDS: LACTULOSE 20G/30ML UDC PO SCH (10:53)
[2020-11-11] MEDS: FUROSEMIDE 40MG/4ML VIAL IV SCH (10:54)
[2020-11-11] MEDS: POTASSIUM CHLORIDE 20MEQ TABLET SR PO SCH (10:54)
[2020-11-11] MEDS: LOSARTAN POTASSIUM 50 MG TABLET PO SCH (10:54)
[2020-11-11] MEDS: ASPIRIN 81MG EC TABLET PO SCH (10:54)
[2020-11-11] MEDS ORDERED: MED4 MT (11:48)
[2020-11-11 12:00] VITALS: BP 165/93
[2020-11-11 12:13] VITALS: BP 156/86
[2020-11-11] MEDS ORDERED: CARVEDILOL 6.25 MG TABLET PO SCH (17:00)
== END 2020-11-11 13:00 | disposition home health service (06) | DRG 291 ==
LOC: ER 14:33 → 8WST 17:52 → ENRESERV 20:35
PROVIDERS: ADMIT Internal Medicine; ATTEND Internal Medicine
PROC: 5A09357 Assistance with Respiratory Ventilation, Less than 24 Consecutive Hours, Continuous Positive Airway Pressure (ICD-10-PCS; principal; 2020-11-07)
DX: I13.0 Hypertensive heart and chronic kidney disease with heart failure and stage 1 through stage 4 chronic kidney disease, or unspecified chronic kidney disease (principal); J96.01 Acute respiratory failure with hypoxia; E43 Unspecified severe protein-calorie malnutrition; I50.23 Acute on chronic systolic (congestive) heart failure; J44.1 Chronic obstructive pulmonary disease with (acute) exacerbation; D64.9 Anemia, unspecified; E11.51 Type 2 diabetes mellitus with diabetic peripheral angiopathy without gangrene; E11.621 Type 2 diabetes mellitus with foot ulcer; E78.5 Hyperlipidemia, unspecified; F17.200 Nicotine dependence, unspecified, uncomplicated; G54.6 Phantom limb syndrome with pain; G89.4 Chronic pain syndrome; I25.10 Atherosclerotic heart disease of native coronary artery without angina pectoris; I25.2 Old myocardial infarction; I25.5 Ischemic cardiomyopathy; I27.21 Secondary pulmonary arterial hypertension; R53.81 Other malaise; R26.9 Unspecified abnormalities of gait and mobility; I48.91 Unspecified atrial fibrillation; I87.2 Venous insufficiency (chronic) (peripheral); E11.22 Type 2 diabetes mellitus with diabetic chronic kidney disease; N18.9 Chronic kidney disease, unspecified; I49.3 Ventricular premature depolarization; L97.529 Non-pressure chronic ulcer of other part of left foot with unspecified severity; Z86.73 Personal history of transient ischemic attack (TIA), and cerebral infarction without residual deficits; Z89.511 Acquired absence of right leg below knee; Z99.81 Dependence on supplemental oxygen; Z88.6 Allergy status to analgesic agent; Z88.0 Allergy status to penicillin; Z79.2 Long term (current) use of antibiotics; Z79.899 Other long term (current) drug therapy; Z95.828 Presence of other vascular implants and grafts
CPT/HCPCS: 36415; 71045; 74018; 80048; 80053; 80061; 82550; 82962; 83036; 83735; 83880; 84484; 85025; 93005; 93922; 93970; 94640; 94660; 97162; 97165; 99291; J0360; J1650; J1815; J1940; J2920

== ENCOUNTER 2020-12-28 19:05 | Emergency (ER) | payer MEDICARE, MEDICAID ==
[~2020-12-28] VITALS: Ht 165.1 cm; Wt 69.0 kg
[~2020-12-28 19:05] MED LIST changes: +ASPI-1497 PO; +BISA-81 PO; +FURO-151 MT; +GABA-532 PO; +HYDR-4001 MT; -LEVO500T89 MT; +METO-539 MT; -METR-167 MT; +POTA10CA42 MT
[2020-12-28] MEDS ORDERED: PREDNISONE 20MG TABLET PO STA (20:15)
[2020-12-28] MEDS ORDERED: IPRATROPIUM BROMIDE (0.02%) 0.5MG/2.5ML NEB HHN STA (20:15)
[2020-12-28] MEDS ORDERED: ALBUTEROL (0.083%) 2.5MG/3ML NEB HHN STA (20:15)
[2020-12-28 21:56] LABS: BASOPHILS % 0.4 % (0.0-2.0); EOSINOPHILS % 1.9 % (0.0-5.0); HEMATOCRIT. 37.1 % (36.0-48.0); HEMOGLOBIN. 11.8 g/dL (12.0-16.0); LYMPHOCYTES % 29.4 % (20.0-50.0); MEAN CORPUSCULAR HEMOGLOBIN 29.6 pg (28.0-32.0); MEAN CORPUSCULAR VOLUME 93.2 fL (81.0-99.0); MEAN PLATELET VOLUME 8.2 fl (7.4-10.4); MONOCYTES % 11.4 % (2.0-8.0); NEUTROPHILS % 56.9 % (40.0-76.0); PLATELET 180 x1000/uL (130-400); RED BLOOD CELL COUNT 3.98 mill/uL (4.2-5.4); RED CELL DISTRIBUTION WIDTH 17.7 % (11.6-14.6)
[2020-12-28 21:59] LABS: CHLORIDE 111 mEq/L (98-107)
[2020-12-28 23:57] VITALS: BP 182/98
== END 2020-12-29 00:50 | disposition home or self-care (01) ==
LOC: ER 19:05
DX: R06.02 Shortness of breath (principal); R10.13 Epigastric pain; I13.0 Hypertensive heart and chronic kidney disease with heart failure and stage 1 through stage 4 chronic kidney disease, or unspecified chronic kidney disease; I50.9 Heart failure, unspecified; N18.9 Chronic kidney disease, unspecified; J44.9 Chronic obstructive pulmonary disease, unspecified; Z99.81 Dependence on supplemental oxygen; Z88.0 Allergy status to penicillin; Z88.5 Allergy status to narcotic agent; Z79.899 Other long term (current) drug therapy
CPT/HCPCS: 36415; 71045; 80053; 83690; 83880; 84484; 85025; 93005; 94640; 99285; J7512

== ENCOUNTER 2021-01-08 15:17 | Emergency (ER) | payer MEDICARE, MEDICAID ==
[~2021-01-08] VITALS: Ht 165.1 cm; Wt 91.0 kg
[2021-01-08] MEDS ORDERED: LIDOCAINE HCL 1% 20ML VIAL (Pyxis) INJ INFIL ONE (16:30)
[2021-01-08] MEDS ORDERED: ACETAMINOPHEN 325MG TABLET PO ONE (16:30)
[2021-01-08] MEDS ORDERED: LIDOCAINE HCL/PF 1% 10 MG/ML 5ML VIAL INFIL SCH (16:48)
[2021-01-08] MEDS ORDERED: SULF1TAB48 MT (19:21)
[2021-01-08] MEDS ORDERED: TOPUD MT (19:21)
[2021-01-08 19:42] VITALS: BP 186/88
[2021-01-20] MEDS ORDERED: lisinopril (17:40)
[2021-01-20] MEDS ORDERED: [UNRECOGNIZED DRUG - CODE] (17:40)
== END 2021-01-08 20:25 | disposition home or self-care (01) ==
LOC: ER 15:17
DX: S81.812A Laceration without foreign body, left lower leg, initial encounter (principal); X58.XXXA Exposure to other specified factors, initial encounter; Y93.89 Activity, other specified; Y92.89 Other specified places as the place of occurrence of the external cause; Y99.8 Other external cause status; Z88.0 Allergy status to penicillin; Z88.5 Allergy status to narcotic agent
CPT/HCPCS: 12001; 99283; J3490

== ENCOUNTER 2021-01-25 08:27 | Inpatient (IN) | payer MEDICARE, MEDICAID ==
[~2021-01-25] VITALS: Ht 154.9 cm; Wt 64.0 kg
[~2021-01-25 08:27] MED LIST changes: +SULF1TAB48 MT; +TOPUD MT; +[UNRECOGNIZED DRUG - CODE]; +lisinopril
[2021-01-25] MEDS ORDERED: ACETAMINOPHEN 325MG TABLET PO STA (08:48)
[2021-01-25 09:25] LABS: BASOPHILS % 0.5 % (0.0-2.0); EOSINOPHILS % 2.1 % (0.0-5.0); HEMATOCRIT. 42.3 % (36.0-48.0); HEMOGLOBIN. 13.4 g/dL (12.0-16.0); LYMPHOCYTES % 14.9 % (20.0-50.0); MEAN CORPUSCULAR HEMOGLOBIN 29.7 pg (28.0-32.0); MEAN CORPUSCULAR VOLUME 93.6 fL (81.0-99.0); MONOCYTES % 8.3 % (2.0-8.0); NEUTROPHILS % 74.2 % (40.0-76.0); RED BLOOD CELL COUNT 4.52 mill/uL (4.2-5.4); RED CELL DISTRIBUTION WIDTH 16.7 % (11.6-14.6)
[2021-01-25 09:29] LABS: CHLORIDE 102 mEq/L (98-107)
[2021-01-25 10:01] LABS: PLATELET 205 x1000/uL (130-400)
[2021-01-25] MEDS ORDERED: SODIUM CHLORIDE 0.9% 250 ML IV NR (10:45)
[2021-01-25 10:51] LABS: CREATINE KINASE 94 IU/L (26-192)
[2021-01-25 13:16] LABS: CLARITY URINE CLEAR (CLEAR); COLOR URINE YELLOW (YELLOW); KETONES URINE NEGATIVE (NEGATIVE); LEUKOCYTE ESTERASE URINE TRACE (NEGATIVE); NITRITE URINE NEGATIVE (NEGATIVE); OCCULT BLOOD URINE NEGATIVE (NEGATIVE); PH URINE 8.5 (4.5-8.0); PROTEIN URINE 1+ (NEGATIVE); SPECIFIC GRAVITY URINE 1.019 (1.005-1.030)
[2021-01-25 18:42] VITALS: BP 119/65
[2021-01-25 20:00] VITALS: BP 163/82
[2021-01-25] MEDS ORDERED: DEXTROSE 50% WATER 50ML SYRINGE IV PRN (20:30)
[2021-01-25] MEDS ORDERED: IPRATROPIUM/ALBUTEROL 0.5-3(2.5)MG/3ML NEB HHN PRN (20:30)
[2021-01-25] MEDS ORDERED: ACETAMINOPHEN 650MG/20.3ML UDC PO PRN (20:30)
[2021-01-25] MEDS ORDERED: NALOXONE HCL 0.4MG/ML VIAL IV PRN (20:45)
[2021-01-25] MEDS: INSULIN LISPRO 100 UNITS/ML SUBCUT SCH (21:00)
[2021-01-25] MEDS: BLOOD SUGAR DIAGNOSTIC STRIP TEST SCH (21:08)
[2021-01-25] MEDS: CLONIDINE 0.1MG TABLET PO PRN (21:09)
[2021-01-25] MEDS: HYDROCODONE/ACETAMINOPHEN 5/325MG TABLET PO PRN (23:46)
[2021-01-26] VITALS (8 sets, daily range): BP systolic 108–179; BP diastolic 50–87
[2021-01-26] MEDS: HYDROCODONE/ACETAMINOPHEN 5/325MG TABLET PO PRN ×2 (03:33→17:40)
[2021-01-26] MEDS: BLOOD SUGAR DIAGNOSTIC STRIP TEST SCH ×4 (07:10→21:00)
[2021-01-26] MEDS: INSULIN LISPRO 100 UNITS/ML SUBCUT SCH ×4 (07:40→21:00)
[2021-01-26] MEDS: ENOXAPARIN 30MG/0.3ML SYR SUBCUT SCH (09:40)
[2021-01-26] MEDS: AMLODIPINE 5MG TABLET PO SCH (14:15)
[2021-01-26] MEDS: LOSARTAN POTASSIUM 50 MG TABLET PO SCH (14:15)
[2021-01-26] MEDS: CLONIDINE 0.1MG TABLET PO PRN (17:42)
[2021-01-26] MEDS: CARVEDILOL 3.125 MG TABLET PO SCH (21:00)
[2021-01-26] MEDS: SILVER SULFADIAZINE 1% CREAM 50GM TOP SCH (21:27)
[2021-01-27] VITALS: BP 119/63
[2021-01-27] MEDS: HYDROCODONE/ACETAMINOPHEN 5/325MG TABLET PO PRN (02:59)
[2021-01-27 03:48] VITALS: BP 160/89
[2021-01-27] MEDS: INSULIN LISPRO 100 UNITS/ML SUBCUT SCH ×4 (05:15→20:56)
[2021-01-27] MEDS: BLOOD SUGAR DIAGNOSTIC STRIP TEST SCH ×4 (05:15→19:59)
[2021-01-27 08:00] VITALS: BP 187/91
[2021-01-27] MEDS: CLONIDINE 0.1MG TABLET PO PRN (10:04)
[2021-01-27] MEDS: ENOXAPARIN 30MG/0.3ML SYR SUBCUT SCH (10:04)
[2021-01-27] MEDS: LOSARTAN POTASSIUM 50 MG TABLET PO SCH (10:04)
[2021-01-27] MEDS: AMLODIPINE 5MG TABLET PO SCH (10:04)
[2021-01-27] MEDS: CARVEDILOL 3.125 MG TABLET PO SCH ×2 (10:04→20:56)
[2021-01-27] MEDS: SILVER SULFADIAZINE 1% CREAM 50GM TOP SCH (10:05)
[2021-01-27 12:00] VITALS: BP 140/77
[2021-01-27 14:53] LABS: FOLIC ACID (FOLATE) SERUM 19.3 ng/mL (>5.38)
[2021-01-27 16:00] VITALS: BP 116/94
[2021-01-27 20:00] VITALS: BP 159/69
[2021-01-28] VITALS: BP 160/66
[2021-01-28 04:00] VITALS: BP 170/75
[2021-01-28] MEDS: BLOOD SUGAR DIAGNOSTIC STRIP TEST SCH (05:44)
[2021-01-28] MEDS: INSULIN LISPRO 100 UNITS/ML SUBCUT SCH (05:44)
[2021-01-28] MEDS: CLONIDINE 0.1MG TABLET PO PRN (06:04)
[2021-01-28 08:00] VITALS: BP 156/72
[2021-01-28] MEDS ORDERED: LACTULOSE 20G/30ML UDC PO SCH (08:00)
[2021-01-28] MEDS: ENOXAPARIN 30MG/0.3ML SYR SUBCUT SCH (08:52)
[2021-01-28] MEDS: AMLODIPINE 5MG TABLET PO SCH (08:52)
[2021-01-28] MEDS: LOSARTAN POTASSIUM 50 MG TABLET PO SCH (08:52)
[2021-01-28] MEDS: CARVEDILOL 3.125 MG TABLET PO SCH (08:53)
[2021-01-28] MEDS: SILVER SULFADIAZINE 1% CREAM 50GM TOP SCH (09:06)
[2021-01-28 09:45] VITALS: BP 156/72
== END 2021-01-28 12:00 | disposition home or self-care (01) | DRG 71 ==
LOC: ER 08:55 → 8WST 13:20 → EDBEDREQ 13:22 → EDBEDREQTM 13:22 → ENRESERV 16:32
PROVIDERS: ADMIT Internal Medicine; ATTEND Internal Medicine
DX: G93.41 Metabolic encephalopathy (principal); N17.9 Acute kidney failure, unspecified; I13.0 Hypertensive heart and chronic kidney disease with heart failure and stage 1 through stage 4 chronic kidney disease, or unspecified chronic kidney disease; I50.22 Chronic systolic (congestive) heart failure; L97.929 Non-pressure chronic ulcer of unspecified part of left lower leg with unspecified severity; I16.0 Hypertensive urgency; N18.9 Chronic kidney disease, unspecified; E11.22 Type 2 diabetes mellitus with diabetic chronic kidney disease; F17.200 Nicotine dependence, unspecified, uncomplicated; D64.9 Anemia, unspecified; E11.51 Type 2 diabetes mellitus with diabetic peripheral angiopathy without gangrene; G54.6 Phantom limb syndrome with pain; G89.4 Chronic pain syndrome; I25.10 Atherosclerotic heart disease of native coronary artery without angina pectoris; J44.9 Chronic obstructive pulmonary disease, unspecified; Z89.611 Acquired absence of right leg above knee; Z99.81 Dependence on supplemental oxygen; Z86.73 Personal history of transient ischemic attack (TIA), and cerebral infarction without residual deficits; Z88.0 Allergy status to penicillin; Z88.5 Allergy status to narcotic agent
CPT/HCPCS: 36415; 73590; 80053; 81003; 82140; 82550; 82607; 82746; 82962; 83036; 84145; 84443; 84484; 85025; 93005; 97161; 97166; 99285; J1650

== ENCOUNTER 2021-02-11 15:35 | Inpatient (IN) | payer MEDICARE, MEDICAID ==
[~2021-02-11] VITALS: Ht 165.1 cm; Wt 64.0 kg
[2021-02-11] MEDS ORDERED: KETOROLAC 30MG/ML VIAL IV ONE (17:00)
[2021-02-11] MEDS ORDERED: METHYLPREDNISOLONE SOD SUCC 125 MG/2 ML VIAL IV STA (17:32)
[2021-02-11] MEDS ORDERED: ALBUTEROL (0.083%) 2.5MG/3ML NEB HHN STA (17:32)
[2021-02-11] MEDS ORDERED: IPRATROPIUM BROMIDE (0.02%) 0.5MG/2.5ML NEB HHN STA (17:32)
[2021-02-11 18:46] LABS: BASOPHILS % 0.8 % (0.0-2.0); EOSINOPHILS % 2.7 % (0.0-5.0); HEMATOCRIT. 33.8 % (36.0-48.0); HEMOGLOBIN. 10.8 g/dL (12.0-16.0); LYMPHOCYTES % 17.2 % (20.0-50.0); MEAN CORPUSCULAR HEMOGLOBIN 29.8 pg (28.0-32.0); MEAN CORPUSCULAR VOLUME 93.6 fL (81.0-99.0); MONOCYTES % 8.2 % (2.0-8.0); NEUTROPHILS % 71.1 % (40.0-76.0); RED BLOOD CELL COUNT 3.61 mill/uL (4.2-5.4); RED CELL DISTRIBUTION WIDTH 16.6 % (11.6-14.6)
[2021-02-11 18:54] LABS: CHLORIDE 111 mEq/L (98-107)
[2021-02-11 19:29] LABS: PLATELET 203 x1000/uL (130-400)
[2021-02-11] MEDS ORDERED: MORPHINE SULFATE 4 MG/ML CPJ (NOT FOR IM USE) IV ONE (20:15)
[2021-02-11] MEDS ORDERED: IOHEXOL-350 100 ML BOTTLE ONE (23:35)
[2021-02-12] VITALS (9 sets, daily range): BP systolic 149–188; BP diastolic 67–91
[2021-02-12] MEDS ORDERED: ONDANSETRON HCL 4MG/2ML INJ IV PRN (00:30)
[2021-02-12] MEDS ORDERED: DEXTROSE 50% WATER 50ML SYRINGE IV PRN (01:15)
[2021-02-12] MEDS: CLONIDINE 0.1MG TABLET PO PRN ×4 (01:23→17:10)
[2021-02-12] MEDS: INSULIN LISPRO 100 UNITS/ML SUBCUT SCH ×4 (05:38→21:00)
[2021-02-12] MEDS: BLOOD SUGAR DIAGNOSTIC STRIP TEST SCH ×4 (05:38→21:00)
[2021-02-12] MEDS: METHYLPREDNISOLONE SOD SUCC 40 MG/ML VIAL IV SCH ×3 (05:38→17:10)
[2021-02-12] MEDS: FUROSEMIDE 40MG/4ML VIAL IVP SCH (09:37)
[2021-02-12] MEDS: ENOXAPARIN 40MG/0.4ML SYR SUBCUT SCH (09:38)
[2021-02-12] MEDS: ACETAMINOPHEN 325MG TABLET PO PRN (17:10)
[2021-02-13] VITALS (7 sets, daily range): BP systolic 108–173; BP diastolic 75–94
[2021-02-13] MEDS: METHYLPREDNISOLONE SOD SUCC 40 MG/ML VIAL IV SCH ×4 (00:35→17:20)
[2021-02-13] MEDS: ACETAMINOPHEN 325MG TABLET PO PRN ×2 (03:55→18:42)
[2021-02-13] MEDS: CLONIDINE 0.1MG TABLET PO PRN (04:09)
[2021-02-13] MEDS: INSULIN LISPRO 100 UNITS/ML SUBCUT SCH ×4 (06:15→22:06)
[2021-02-13] MEDS: BLOOD SUGAR DIAGNOSTIC STRIP TEST SCH ×4 (06:15→21:00)
[2021-02-13 07:10] LABS: HEMATOCRIT. 30.3 % (36.0-48.0); HEMOGLOBIN. 9.5 g/dL (12.0-16.0); MEAN CORPUSCULAR HEMOGLOBIN 29.3 pg (28.0-32.0); MEAN PLATELET VOLUME 8.2 fl (7.4-10.4); PLATELET 192 x1000/uL (130-400); RED BLOOD CELL COUNT 3.25 mill/uL (4.2-5.4); RED CELL DISTRIBUTION WIDTH 16.9 % (11.6-14.6)
[2021-02-13] MEDS: FUROSEMIDE 40MG/4ML VIAL IVP SCH (08:59)
[2021-02-13] MEDS: ENOXAPARIN 40MG/0.4ML SYR SUBCUT SCH (08:59)
[2021-02-13] MEDS: IPRATROPIUM/ALBUTEROL 0.5-3(2.5)MG/3ML NEB NEB SCH ×4 (09:28→20:58)
[2021-02-13 16:29] LABS: PLATELET ESTIMATE NORMAL
[2021-02-13] MEDS: MORPHINE SULFATE 2 MG/ML CPJ (NOT FOR IM USE) IV PRN (22:04)
[2021-02-14] VITALS: BP 149/68
[2021-02-14] MEDS: METHYLPREDNISOLONE SOD SUCC 40 MG/ML VIAL IV SCH ×4 (00:17→17:06)
[2021-02-14] MEDS: IPRATROPIUM/ALBUTEROL 0.5-3(2.5)MG/3ML NEB NEB SCH ×5 (01:10→20:30)
[2021-02-14 04:00] VITALS: BP 156/72
[2021-02-14] MEDS: BLOOD SUGAR DIAGNOSTIC STRIP TEST SCH ×4 (06:23→21:18)
[2021-02-14] MEDS: INSULIN LISPRO 100 UNITS/ML SUBCUT SCH ×4 (06:23→21:46)
[2021-02-14 08:00] VITALS: BP 159/83
[2021-02-14] MEDS: FUROSEMIDE 40MG/4ML VIAL IVP SCH (08:28)
[2021-02-14] MEDS: ENOXAPARIN 40MG/0.4ML SYR SUBCUT SCH (08:28)
[2021-02-14 12:00] VITALS: BP 160/78
[2021-02-14 16:00] VITALS: BP 162/90
[2021-02-14] MEDS: ACETAMINOPHEN 325MG TABLET PO PRN (16:20)
[2021-02-14] MEDS: CLONIDINE 0.1MG TABLET PO PRN (16:26)
[2021-02-14 20:00] VITALS: BP 160/61
[2021-02-15] VITALS (7 sets, daily range): BP systolic 124–170; BP diastolic 67–99
[2021-02-15] MEDS: METHYLPREDNISOLONE SOD SUCC 40 MG/ML VIAL IV SCH ×4 (00:08→17:51)
[2021-02-15] MEDS: MORPHINE SULFATE 2 MG/ML CPJ (NOT FOR IM USE) IV PRN (00:09)
[2021-02-15] MEDS: IPRATROPIUM/ALBUTEROL 0.5-3(2.5)MG/3ML NEB NEB SCH ×5 (00:30→16:10)
[2021-02-15] MEDS: CLONIDINE 0.1MG TABLET PO PRN ×2 (04:43→19:49)
[2021-02-15] MEDS: BLOOD SUGAR DIAGNOSTIC STRIP TEST SCH ×3 (06:19→16:23)
[2021-02-15] MEDS: INSULIN LISPRO 100 UNITS/ML SUBCUT SCH ×3 (06:20→16:22)
[2021-02-15] MEDS: ENOXAPARIN 40MG/0.4ML SYR SUBCUT SCH (08:30)
[2021-02-15] MEDS: FUROSEMIDE 40MG/4ML VIAL IVP SCH (08:30)
== END 2021-02-15 20:08 | DRG 190 ==
LOC: ER 15:35 → 7EST 19:15 → ENRESERV 21:58
PROVIDERS: ADMIT Internal Medicine; ATTEND Internal Medicine
DX: J44.1 Chronic obstructive pulmonary disease with (acute) exacerbation (principal); I50.23 Acute on chronic systolic (congestive) heart failure; I13.0 Hypertensive heart and chronic kidney disease with heart failure and stage 1 through stage 4 chronic kidney disease, or unspecified chronic kidney disease; L97.929 Non-pressure chronic ulcer of unspecified part of left lower leg with unspecified severity; I11.0 Hypertensive heart disease with heart failure; E11.22 Type 2 diabetes mellitus with diabetic chronic kidney disease; E11.51 Type 2 diabetes mellitus with diabetic peripheral angiopathy without gangrene; N18.9 Chronic kidney disease, unspecified; Z86.73 Personal history of transient ischemic attack (TIA), and cerebral infarction without residual deficits; Z87.891 Personal history of nicotine dependence; Z89.511 Acquired absence of right leg below knee; Z99.81 Dependence on supplemental oxygen; Z88.5 Allergy status to narcotic agent; Z88.0 Allergy status to penicillin; Z79.899 Other long term (current) drug therapy; Z79.891 Long term (current) use of opiate analgesic; Z79.82 Long term (current) use of aspirin
CPT/HCPCS: 36415; 71045; 71275; 74177; 80048; 80053; 82962; 83036; 83880; 84484; 85025; 87426; 87804; 93005; 94640; 94644; 99285; J1650; J1815; J1885; J1940; J2270; J2405; J2920; J2930; Q9967

== ENCOUNTER 2021-04-18 11:52 | Inpatient (IN) | payer MEDICARE, MEDICAID ==
[~2021-04-18] VITALS: Ht 160 cm; Wt 48.8 kg
[~2021-04-18 11:52] MED LIST changes: +ATOR20TA65 MT; +CLOP75TA33 MT; -FURO-151 MT; +FURO20TA4 MT; -GABA-532 PO; +GABA-533 MT; +LOSA50TA41 MT; +MELA3TAB42 MT; +MONT10TA32 MT; -POTA10CA42 MT; +POTA20TA82 MT; +QUET25TA MT; -SULF1TAB48 MT; +ZINC220C6 PO; -[UNRECOGNIZED DRUG - CODE]; -lisinopril
[2021-04-18] MEDS ORDERED: ONDANSETRON HCL 4MG/2ML INJ IV STA (12:20)
[2021-04-18 13:06] LABS: BASOPHILS % 1.1 % (0.0-2.0); EOSINOPHILS % 2.7 % (0.0-5.0); HEMATOCRIT. 29.5 % (36.0-48.0); LYMPHOCYTES % 22.3 % (20.0-50.0); MEAN CORPUSCULAR HEMOGLOBIN 26.3 pg (28.0-32.0); MEAN CORPUSCULAR VOLUME 85.8 fL (81.0-99.0); MONOCYTES % 10.7 % (2.0-8.0); NEUTROPHILS % 63.2 % (40.0-76.0); PLATELET 307 x1000/uL (130-400); RED BLOOD CELL COUNT 3.44 mill/uL (4.2-5.4); RED CELL DISTRIBUTION WIDTH 17.5 % (11.6-14.6)
[2021-04-18 13:10] LABS: CHLORIDE 103 mEq/L (98-107)
[2021-04-18] MEDS ORDERED: IOHEXOL-300 100 ML BOTTLE ONE (18:50)
[2021-04-18] MEDS ORDERED: ACETAMINOPHEN 325MG TABLET PO PRN (22:00)
[2021-04-18] MEDS ORDERED: IPRATROPIUM/ALBUTEROL 0.5-3(2.5)MG/3ML NEB NEB PRN (22:00)
[2021-04-18] MEDS ORDERED: MORPHINE SULFATE 2 MG/ML CPJ (NOT FOR IM USE) IV PRN (22:00)
[2021-04-18] MEDS ORDERED: ONDANSETRON HCL 4MG/2ML INJ IV PRN (22:00)
[2021-04-18] MEDS ORDERED: NALOXONE HCL 0.4MG/ML VIAL IV PRN (22:15)
[2021-04-18] MEDS: HYDROCODONE/ACETAMINOPHEN 5/325MG TABLET PO PRN (22:42)
[2021-04-19 00:30] VITALS: BP 101/62
[2021-04-19 04:00] VITALS: BP 135/56
[2021-04-19] MEDS ORDERED: DEXTROSE 50% WATER 50ML SYRINGE IV PRN (05:00)
[2021-04-19] MEDS: BLOOD SUGAR DIAGNOSTIC STRIP TEST SCH ×4 (07:01→21:00)
[2021-04-19] MEDS: INSULIN LISPRO 100 UNITS/ML SUBCUT SCH ×4 (07:50→21:00)
[2021-04-19 09:39] VITALS: BP 128/59
[2021-04-19] MEDS: LOSARTAN POTASSIUM 50 MG TABLET PO SCH (10:09)
[2021-04-19] MEDS: ASPIRIN 81MG EC TABLET PO SCH (10:09)
[2021-04-19] MEDS: FUROSEMIDE 20MG TABLET PO SCH (10:10)
[2021-04-19] MEDS: ATORVASTATIN CALCIUM 20MG TABLET PO SCH (10:10)
[2021-04-19] MEDS: GABAPENTIN 400MG CAPSULE PO SCH (10:10)
[2021-04-19] MEDS: ZINC SULFATE 220 MG ( 50 ) CAPSULE PO SCH (10:11)
[2021-04-19] MEDS: CLOPIDOGREL 75MG TABLET PO SCH (10:11)
[2021-04-19] MEDS: QUETIAPINE FUMARATE 25MG TABLET PO SCH ×2 (10:12→18:10)
[2021-04-19] MEDS: METOPROLOL TARTRATE 50MG TABLET PO SCH ×2 (12:45→18:09)
[2021-04-19] MEDS: MONTELUKAST SODIUM 10MG TABLET PO SCH (18:10)
[2021-04-19] MEDS: HYDROCODONE/ACETAMINOPHEN 5/325MG TABLET PO PRN (18:12)
[2021-04-19 20:00] VITALS: BP 126/54
[2021-04-20] VITALS: BP 145/58
[2021-04-20 04:00] VITALS: BP 149/72
[2021-04-20] MEDS: INSULIN LISPRO 100 UNITS/ML SUBCUT SCH ×3 (07:50→17:50)
[2021-04-20] MEDS: BLOOD SUGAR DIAGNOSTIC STRIP TEST SCH ×3 (07:53→17:20)
[2021-04-20 08:00] VITALS: BP 108/54
[2021-04-20] MEDS: ZINC SULFATE 220 MG ( 50 ) CAPSULE PO SCH (09:46)
[2021-04-20] MEDS: ATORVASTATIN CALCIUM 20MG TABLET PO SCH (09:46)
[2021-04-20] MEDS: LOSARTAN POTASSIUM 50 MG TABLET PO SCH (09:47)
[2021-04-20] MEDS: CLOPIDOGREL 75MG TABLET PO SCH (09:47)
[2021-04-20] MEDS: METOPROLOL TARTRATE 50MG TABLET PO SCH ×2 (09:47→16:40)
[2021-04-20] MEDS: GABAPENTIN 400MG CAPSULE PO SCH (09:47)
[2021-04-20] MEDS: FUROSEMIDE 20MG TABLET PO SCH (09:47)
[2021-04-20] MEDS: QUETIAPINE FUMARATE 25MG TABLET PO SCH ×2 (09:47→16:40)
[2021-04-20] MEDS: ASPIRIN 81MG EC TABLET PO SCH (09:47)
[2021-04-20 12:00] VITALS: BP 107/50
[2021-04-20] MEDS ORDERED: HEPARIN 5000 UNITS/ML VIAL SUBCUT NR (13:15)
[2021-04-20 16:00] VITALS: BP 147/50
[2021-04-20] MEDS: MONTELUKAST SODIUM 10MG TABLET PO SCH (16:40)
[2021-04-20 18:22] VITALS: BP 147/50
== END 2021-04-20 19:50 | disposition home or self-care (01) | DRG 687 ==
LOC: ER 11:52 → 6EST 15:57 → ENRESERV 23:26
PROVIDERS: ADMIT Internal Medicine; ATTEND Internal Medicine
DX: C64.1 Malignant neoplasm of right kidney, except renal pelvis (principal); I13.0 Hypertensive heart and chronic kidney disease with heart failure and stage 1 through stage 4 chronic kidney disease, or unspecified chronic kidney disease; I50.22 Chronic systolic (congestive) heart failure; L97.929 Non-pressure chronic ulcer of unspecified part of left lower leg with unspecified severity; E11.22 Type 2 diabetes mellitus with diabetic chronic kidney disease; G89.29 Other chronic pain; F17.200 Nicotine dependence, unspecified, uncomplicated; N18.9 Chronic kidney disease, unspecified; N28.89 Other specified disorders of kidney and ureter; Z20.822 Contact with and (suspected) exposure to COVID-19; E11.51 Type 2 diabetes mellitus with diabetic peripheral angiopathy without gangrene; D64.9 Anemia, unspecified; J44.9 Chronic obstructive pulmonary disease, unspecified; Z88.0 Allergy status to penicillin; Z88.5 Allergy status to narcotic agent; Z88.6 Allergy status to analgesic agent; Z51.5 Encounter for palliative care; Z89.511 Acquired absence of right leg below knee
CPT/HCPCS: 36415; 74177; 80053; 82962; 83036; 85025; 87426; 93005; 99285; J1644; J2405; Q9967

== ENCOUNTER 2021-05-14 02:45 | Emergency (ER) | payer MEDICARE, MEDICAID ==
[~2021-05-14] VITALS: Ht 160 cm; Wt 70.0 kg
[2021-05-14] MEDS ORDERED: MORPHINE SULFATE 4 MG/ML CPJ (NOT FOR IM USE) IV STA (05:33)
[2021-05-14] MEDS ORDERED: FAMOTIDINE 20MG/2ML VIAL IV STA (05:33)
[2021-05-14] MEDS ORDERED: METOCLOPRAMIDE HCL 10MG/2ML VIAL IV ONE (06:15)
[2021-05-14 06:23] LABS: BASOPHILS % 0.7 % (0.0-2.0); EOSINOPHILS % 1.6 % (0.0-5.0); HEMATOCRIT. 26.2 % (36.0-48.0); LYMPHOCYTES % 17.1 % (20.0-50.0); MEAN CORPUSCULAR HEMOGLOBIN 24.8 pg (28.0-32.0); MEAN CORPUSCULAR VOLUME 81.1 fL (81.0-99.0); MEAN PLATELET VOLUME 8.4 fl (7.4-10.4); MONOCYTES % 9.1 % (2.0-8.0); NEUTROPHILS % 71.5 % (40.0-76.0); PLATELET 264 x1000/uL (130-400); RED BLOOD CELL COUNT 3.22 mill/uL (4.2-5.4); RED CELL DISTRIBUTION WIDTH 19.1 % (11.6-14.6)
[2021-05-14 06:28] LABS: CHLORIDE 109 mEq/L (98-107)
[2021-05-14] MEDS ORDERED: FAMO-135 MT (08:37)
[2021-05-14] MEDS ORDERED: HYDRALAZINE 20MG/ML VIAL IV ONE (08:45)
[2021-05-14 09:12] VITALS: BP 163/95
== END 2021-05-14 10:00 | disposition home or self-care (01) ==
LOC: ER 02:45
DX: R10.13 Epigastric pain (principal); I11.0 Hypertensive heart disease with heart failure; I50.9 Heart failure, unspecified; J44.9 Chronic obstructive pulmonary disease, unspecified; E11.9 Type 2 diabetes mellitus without complications; Z98.890 Other specified postprocedural states; F17.290 Nicotine dependence, other tobacco product, uncomplicated; Z79.899 Other long term (current) drug therapy
CPT/HCPCS: 36415; 71045; 80053; 83690; 83880; 84484; 85025; 93005; 96374; 96375; 99285; J0360; J2270; J2765; J3490

== ENCOUNTER 2021-06-07 20:34 | Inpatient (IN) | payer MEDICARE, MEDICAID ==
[~2021-06-07] VITALS: Ht 165.1 cm; Wt 65.4 kg
[~2021-06-07 20:34] MED LIST changes: +FAMO-135 MT
[2021-06-07] MEDS ORDERED: MORPHINE SULFATE 4 MG/ML CPJ (NOT FOR IM USE) IV STA (20:53)
[2021-06-07] MEDS ORDERED: ONDANSETRON HCL 4MG/2ML INJ IV STA (20:53)
[2021-06-07] MEDS ORDERED: SODIUM CHLORIDE 0.9% 1,000 ML IV ONE (21:00)
[2021-06-07 22:00] LABS: BASOPHILS % 0.4 % (0.0-2.0); EOSINOPHILS % 1.9 % (0.0-5.0); HEMATOCRIT. 27.2 % (36.0-48.0); HEMOGLOBIN. 8.3 g/dL (12.0-16.0); LYMPHOCYTES % 14.3 % (20.0-50.0); MEAN CORPUSCULAR VOLUME 78.2 fL (81.0-99.0); MEAN PLATELET VOLUME 7.7 fl (7.4-10.4); MONOCYTES % 8.9 % (2.0-8.0); NEUTROPHILS % 74.5 % (40.0-76.0); PLATELET 212 x1000/uL (130-400); RED BLOOD CELL COUNT 3.48 mill/uL (4.2-5.4); RED CELL DISTRIBUTION WIDTH 19.7 % (11.6-14.6)
[2021-06-07 22:08] LABS: CHLORIDE 106 mEq/L (98-107)
[2021-06-08 08:15] VITALS: BP 161/49
[2021-06-08] MEDS ORDERED: ACETAMINOPHEN 325MG TABLET PO PRN (09:45)
[2021-06-08] MEDS ORDERED: ONDANSETRON HCL 4MG/2ML INJ IV PRN (09:45)
[2021-06-08] MEDS ORDERED: CLONIDINE 0.1MG TABLET PO PRN (09:45)
[2021-06-08 12:00] VITALS: BP 162/43
[2021-06-08] MEDS ORDERED: BISACODYL 10MG SUPP PR NR (12:07)
[2021-06-08] MEDS ORDERED: MAGNESIUM CITRATE 300ML SOLUTION PO NR (12:30)
[2021-06-08] MEDS: ENOXAPARIN 40MG/0.4ML SYR SUBCUT SCH (14:40)
[2021-06-08] MEDS: METOPROLOL TARTRATE 50MG TABLET PO SCH ×2 (14:41→22:06)
[2021-06-08] MEDS: ASPIRIN 81MG EC TABLET PO SCH (14:41)
[2021-06-08] MEDS: LOSARTAN POTASSIUM 50 MG TABLET PO SCH (14:41)
[2021-06-08] MEDS: SODIUM CHLORIDE 0.9% 1,000 ML IV SCH ×2 (14:43→22:17)
[2021-06-08] MEDS: SORBITOL 70% SOLN 30ML PO SCH ×2 (14:56→18:30)
[2021-06-08] MEDS: METOCLOPRAMIDE HCL 10MG/2ML VIAL IV SCH ×3 (14:56→23:08)
[2021-06-08] MEDS: MORPHINE SULFATE 2 MG/ML CPJ (NOT FOR IM USE) IV PRN (15:23)
[2021-06-08 16:00] VITALS: BP 148/49
[2021-06-08 17:04] LABS: BASOPHILS % 1.1 % (0.0-2.0); EOSINOPHILS % 2.1 % (0.0-5.0); HEMOGLOBIN. 7.9 g/dL (12.0-16.0); LYMPHOCYTES % 12.1 % (20.0-50.0); MEAN CORPUSCULAR HEMOGLOBIN 23.3 pg (28.0-32.0); MEAN CORPUSCULAR VOLUME 79.8 fL (81.0-99.0); NEUTROPHILS % 73.7 % (40.0-76.0); PLATELET 204 x1000/uL (130-400); RED BLOOD CELL COUNT 3.38 mill/uL (4.2-5.4); RED CELL DISTRIBUTION WIDTH 19.7 % (11.6-14.6)
[2021-06-08 17:38] LABS: CHLORIDE 109 mEq/L (98-107)
[2021-06-08 20:00] VITALS: BP 158/70
[2021-06-08] MEDS ORDERED: MINERAL OIL ENEMA 133ML PR NR (22:00)
[2021-06-08] MEDS: PANTOPRAZOLE SODIUM 40 MG/VIAL IV SCH (22:05)
[2021-06-08] MEDS: QUETIAPINE FUMARATE 25MG TABLET PO SCH (22:05)
[2021-06-08] MEDS: ATORVASTATIN CALCIUM 20MG TABLET PO SCH (22:12)
[2021-06-09] VITALS: BP 117/49
[2021-06-09] MEDS: SORBITOL 70% SOLN 30ML PO SCH ×4 (00:04→18:11)
[2021-06-09] MEDS ORDERED: DEXTROSE 50% WATER 50ML SYRINGE IV PRN (02:15)
[2021-06-09 04:00] VITALS: BP 147/53
[2021-06-09] MEDS: METOCLOPRAMIDE HCL 10MG/2ML VIAL IV SCH ×4 (05:32→18:11)
[2021-06-09] MEDS: BLOOD SUGAR DIAGNOSTIC STRIP TEST SCH ×4 (05:39→21:15)
[2021-06-09] MEDS: INSULIN LISPRO 100 UNITS/ML SUBCUT SCH ×4 (07:40→21:00)
[2021-06-09 08:00] VITALS: BP 140/89
[2021-06-09 08:02] LABS: BASOPHILS % 0.8 % (0.0-2.0); EOSINOPHILS % 1.9 % (0.0-5.0); HEMATOCRIT. 27.8 % (36.0-48.0); HEMOGLOBIN. 8.1 g/dL (12.0-16.0); LYMPHOCYTES % 23.1 % (20.0-50.0); MEAN CORPUSCULAR HEMOGLOBIN 22.9 pg (28.0-32.0); MEAN CORPUSCULAR VOLUME 78.6 fL (81.0-99.0); MEAN PLATELET VOLUME 8.4 fl (7.4-10.4); MONOCYTES % 9.2 % (2.0-8.0); PLATELET 224 x1000/uL (130-400); RED BLOOD CELL COUNT 3.54 mill/uL (4.2-5.4); RED CELL DISTRIBUTION WIDTH 19.5 % (11.6-14.6)
[2021-06-09 08:35] LABS: CHLORIDE 110 mEq/L (98-107)
[2021-06-09] MEDS: FUROSEMIDE 20MG TABLET PO SCH (11:16)
[2021-06-09] MEDS: CLOPIDOGREL 75MG TABLET PO SCH (11:16)
[2021-06-09] MEDS: LOSARTAN POTASSIUM 50 MG TABLET PO SCH (11:16)
[2021-06-09] MEDS: BISACODYL 10MG SUPP PR SCH (11:16)
[2021-06-09] MEDS: ASPIRIN 81MG EC TABLET PO SCH (11:16)
[2021-06-09] MEDS: METOPROLOL TARTRATE 50MG TABLET PO SCH ×2 (11:17→21:15)
[2021-06-09] MEDS: PANTOPRAZOLE SODIUM 40 MG/VIAL IV SCH (11:17)
[2021-06-09] MEDS: GABAPENTIN 400MG CAPSULE PO SCH (11:18)
[2021-06-09] MEDS: ATORVASTATIN CALCIUM 20MG TABLET PO SCH (11:18)
[2021-06-09] MEDS: ENOXAPARIN 40MG/0.4ML SYR SUBCUT SCH (11:19)
[2021-06-09] MEDS: QUETIAPINE FUMARATE 25MG TABLET PO SCH ×2 (11:19→21:15)
[2021-06-09 12:00] VITALS: BP 116/75
[2021-06-09] MEDS: SODIUM CHLORIDE 0.9% 1,000 ML IV SCH (12:40)
[2021-06-09 16:00] VITALS: BP 123/85
[2021-06-09] MEDS ORDERED: MINERAL OIL ENEMA 133ML PR NR (17:00)
[2021-06-09] MEDS: BISACODYL 5MG TABLET PO SCH ×2 (18:10→21:13)
[2021-06-09 20:00] VITALS: BP 145/65
[2021-06-09] MEDS: SENNOSIDES/DOCUSATE SOD 8.6/50MG TABLET PO SCH (21:14)
[2021-06-10] VITALS: BP 154/85
[2021-06-10] MEDS: SORBITOL 70% SOLN 30ML PO SCH ×3 (00:55→12:19)
[2021-06-10] MEDS: METOCLOPRAMIDE HCL 10MG/2ML VIAL IV SCH ×4 (01:00→18:35)
[2021-06-10] MEDS: SODIUM CHLORIDE 0.9% 1,000 ML IV SCH ×2 (01:01→15:09)
[2021-06-10 04:00] VITALS: BP 156/68
[2021-06-10] MEDS: BISACODYL 5MG TABLET PO SCH ×4 (04:35→21:55)
[2021-06-10] MEDS: MORPHINE SULFATE 2 MG/ML CPJ (NOT FOR IM USE) IV PRN (05:45)
[2021-06-10] MEDS: BLOOD SUGAR DIAGNOSTIC STRIP TEST SCH ×4 (06:22→21:55)
[2021-06-10] MEDS: INSULIN LISPRO 100 UNITS/ML SUBCUT SCH ×4 (06:58→21:00)
[2021-06-10 08:00] VITALS: BP 155/73
[2021-06-10] MEDS: METOPROLOL TARTRATE 50MG TABLET PO SCH ×2 (09:54→21:54)
[2021-06-10] MEDS: ASPIRIN 81MG EC TABLET PO SCH (09:54)
[2021-06-10] MEDS: ENOXAPARIN 40MG/0.4ML SYR SUBCUT SCH (09:55)
[2021-06-10] MEDS: CLOPIDOGREL 75MG TABLET PO SCH (09:55)
[2021-06-10] MEDS: FUROSEMIDE 20MG TABLET PO SCH (09:55)
[2021-06-10] MEDS: BISACODYL 10MG SUPP PR SCH (09:55)
[2021-06-10] MEDS: LOSARTAN POTASSIUM 50 MG TABLET PO SCH (09:55)
[2021-06-10] MEDS: GABAPENTIN 400MG CAPSULE PO SCH (09:55)
[2021-06-10] MEDS: PANTOPRAZOLE SODIUM 40 MG/VIAL IV SCH (10:00)
[2021-06-10] MEDS: QUETIAPINE FUMARATE 25MG TABLET PO SCH ×2 (10:00→21:54)
[2021-06-10 12:00] VITALS: BP 130/49
[2021-06-10 16:00] VITALS: BP 130/70
[2021-06-10 20:00] VITALS: BP 164/84
[2021-06-10] MEDS: SENNOSIDES/DOCUSATE SOD 8.6/50MG TABLET PO SCH (21:00)
[2021-06-10] MEDS: ATORVASTATIN CALCIUM 20MG TABLET PO SCH (21:54)
[2021-06-11] VITALS: BP 128/59
[2021-06-11] MEDS: METOCLOPRAMIDE HCL 10MG/2ML VIAL IV SCH ×2 (00:01→05:32)
[2021-06-11 04:00] VITALS: BP 143/72
[2021-06-11] MEDS: SODIUM CHLORIDE 0.9% 1,000 ML IV SCH (04:12)
[2021-06-11] MEDS: BLOOD SUGAR DIAGNOSTIC STRIP TEST SCH (06:27)
[2021-06-11] MEDS: INSULIN LISPRO 100 UNITS/ML SUBCUT SCH (06:28)
[2021-06-11 08:00] VITALS: BP 158/60
[2021-06-11 08:21] LABS: BASOPHILS % 0.7 % (0.0-2.0); EOSINOPHILS % 2.6 % (0.0-5.0); HEMATOCRIT. 25.8 % (36.0-48.0); HEMOGLOBIN. 7.7 g/dL (12.0-16.0); LYMPHOCYTES % 21.2 % (20.0-50.0); MEAN CORPUSCULAR HEMOGLOBIN 22.9 pg (28.0-32.0); MEAN CORPUSCULAR VOLUME 76.5 fL (81.0-99.0); MEAN PLATELET VOLUME 8.1 fl (7.4-10.4); MONOCYTES % 10.7 % (2.0-8.0); NEUTROPHILS % 64.8 % (40.0-76.0); PLATELET 220 x1000/uL (130-400); RED BLOOD CELL COUNT 3.37 mill/uL (4.2-5.4); RED CELL DISTRIBUTION WIDTH 20.3 % (11.6-14.6)
[2021-06-11 08:55] LABS: FOLIC ACID (FOLATE) SERUM 17.3 ng/mL (>5.38)
[2021-06-11] MEDS ORDERED: SODIUM CHLORIDE 0.45% 1,000 ML IV SCH (09:00)
[2021-06-11] MEDS: ENOXAPARIN 40MG/0.4ML SYR SUBCUT SCH (09:06)
[2021-06-11] MEDS: ASPIRIN 81MG EC TABLET PO SCH (09:06)
[2021-06-11] MEDS: PANTOPRAZOLE SODIUM 40 MG/VIAL IV SCH (09:06)
[2021-06-11] MEDS: GABAPENTIN 400MG CAPSULE PO SCH (09:06)
[2021-06-11] MEDS: LOSARTAN POTASSIUM 50 MG TABLET PO SCH (09:06)
[2021-06-11] MEDS: CLOPIDOGREL 75MG TABLET PO SCH (09:06)
[2021-06-11] MEDS: FUROSEMIDE 20MG TABLET PO SCH (09:07)
[2021-06-11] MEDS: QUETIAPINE FUMARATE 25MG TABLET PO SCH (09:07)
[2021-06-11] MEDS: METOPROLOL TARTRATE 50MG TABLET PO SCH (09:07)
[2021-06-11] MEDS: BISACODYL 10MG SUPP PR SCH (09:10)
[2021-06-11 09:29] LABS: PHOSPHORUS 2.1 mg/dL (2.5-4.9)
[2021-06-11] MEDS ORDERED: POTASSIUM CHLORIDE 20MEQ/PACKET PO NR (09:30)
[2021-06-11 09:51] VITALS: BP 158/60
[2021-06-11 12:00] VITALS: BP 155/60
[2021-06-11] MEDS ORDERED: NALOXONE HCL 0.4MG/ML VIAL IV PRN (16:45)
[2021-06-16 15:09] LABS: 25-HYDROXY VITAMIN D3 46 ng/mL (.)
== END 2021-06-11 13:22 | disposition home or self-care (01) | DRG 388 ==
LOC: ER 20:34 → MICUSO 06-08 01:11 → 8WST 06-08 08:55
PROVIDERS: ADMIT Internal Medicine; ATTEND Internal Medicine
DX: K56.41 Fecal impaction (principal); G93.41 Metabolic encephalopathy; N17.9 Acute kidney failure, unspecified; I13.0 Hypertensive heart and chronic kidney disease with heart failure and stage 1 through stage 4 chronic kidney disease, or unspecified chronic kidney disease; I42.9 Cardiomyopathy, unspecified; I50.22 Chronic systolic (congestive) heart failure; N18.9 Chronic kidney disease, unspecified; E11.22 Type 2 diabetes mellitus with diabetic chronic kidney disease; J44.9 Chronic obstructive pulmonary disease, unspecified; I48.91 Unspecified atrial fibrillation; D50.9 Iron deficiency anemia, unspecified; E78.5 Hyperlipidemia, unspecified; N28.89 Other specified disorders of kidney and ureter; E11.51 Type 2 diabetes mellitus with diabetic peripheral angiopathy without gangrene; E87.6 Hypokalemia; F17.200 Nicotine dependence, unspecified, uncomplicated; G54.6 Phantom limb syndrome with pain; L97.529 Non-pressure chronic ulcer of other part of left foot with unspecified severity; R26.9 Unspecified abnormalities of gait and mobility; R53.81 Other malaise; G89.4 Chronic pain syndrome; K57.30 Diverticulosis of large intestine without perforation or abscess without bleeding; I25.10 Atherosclerotic heart disease of native coronary artery without angina pectoris; Z82.49 Family history of ischemic heart disease and other diseases of the circulatory system; Z86.73 Personal history of transient ischemic attack (TIA), and cerebral infarction without residual deficits; Z87.11 Personal history of peptic ulcer disease; Z89.511 Acquired absence of right leg below knee; Z99.81 Dependence on supplemental oxygen; Z89.611 Acquired absence of right leg above knee; Z88.6 Allergy status to analgesic agent; Z88.0 Allergy status to penicillin; Z79.82 Long term (current) use of aspirin; Z79.899 Other long term (current) drug therapy; Z71.6 Tobacco abuse counseling
CPT/HCPCS: 36415; 74018; 74176; 80048; 80053; 82306; 82607; 82746; 82962; 83036; 83735; 84100; 85025; 86850; 86900; 93005; 97161; 99285; C1893; C9113; J1650; J2270; J2405; J2765; J7030

== ENCOUNTER 2022-05-23 15:08 | Emergency (ER) | payer MEDICARE, MEDICAID ==
[~2022-05-23] VITALS: Ht 162.6 cm; Wt 65.0 kg
[~2022-05-23 15:08] MED LIST changes: +MONT-39 MT; -MONT10TA32 MT; +POTA-205 MT; -POTA20TA82 MT
[2022-05-23 15:19] VITALS: BP 138/69
== END 2022-05-24 06:04 | disposition left against medical advice (07) ==
LOC: ER 15:21
DX: Z53.21 Procedure and treatment not carried out due to patient leaving prior to being seen by health care provider (principal)
CPT/HCPCS: 99281

== ENCOUNTER 2022-09-25 01:59 | Emergency (ER) | payer MEDICARE, MEDICAID ==
[~2022-09-25] VITALS: Ht 170.2 cm; Wt 68.0 kg
[~2022-09-25 01:59] MED LIST changes: +APIX5TAB MT; +P20 PO
[2022-09-25 02:02] VITALS: O2SAT 98
[2022-09-25] MEDS ORDERED: TETANUS, DIPHTHERIA, PERTUSSIS VAC/PF 0.5ML (>10YR OLD) IM ONE ×2 (03:00→05:30)
[2022-09-25] MEDS ORDERED: BACITRACIN ZINC OINT UDPKT TOP ONE (03:00)
[2022-09-25] MEDS ORDERED: LIDOCAINE HCL/PF 1% 10 MG/ML 5ML VIAL INFIL ONE (03:00)
[2022-09-25] MEDS ORDERED: CLIN-116 MT (03:53)
[2022-09-25 06:30] VITALS: BP 157/87; PULSE 87; RESP 14; TEMP 98.6
== END 2022-09-25 09:18 | disposition home or self-care (01) ==
LOC: ER 02:01
DX: S91.012A Laceration without foreign body, left ankle, initial encounter (principal); I11.0 Hypertensive heart disease with heart failure; I50.9 Heart failure, unspecified; J44.1 Chronic obstructive pulmonary disease with (acute) exacerbation; Z88.0 Allergy status to penicillin; V00.811A Fall from moving wheelchair (powered), initial encounter; X58.XXXA Exposure to other specified factors, initial encounter; Y93.89 Activity, other specified; Y92.89 Other specified places as the place of occurrence of the external cause; Y99.8 Other external cause status
CPT/HCPCS: 99283; 73610; 90715; 12002; 90471; J3490

== ENCOUNTER 2022-10-13 09:14 | Inpatient (IN) | payer MEDICARE, MEDICAID ==
[~2022-10-13] VITALS: Ht 172.7 cm; Wt 60.1 kg
[2022-10-13] VITALS (32 sets, daily range): BP systolic 87–148; BP diastolic 46–92; PULSE 95–138; RESP 15–52; TEMP 95.7–99.9; O2SAT 94
[~2022-10-13 09:14] MED LIST changes: +CLIN-116 MT
[2022-10-13] MEDS ORDERED: PANTOPRAZOLE SODIUM 40 MG/VIAL IV STA (09:43)
[2022-10-13] MEDS ORDERED: PANTOPRAZOLE 80 MG in SODIUM CHLORIDE 0.9% 100 ML IV STA (09:43)
[2022-10-13] MEDS ORDERED: ONDANSETRON HCL 4MG/2ML INJ IV ONE (09:45)
[2022-10-13 10:41] LABS: CHLORIDE 112 mEq/L (98-107); INDEX HEMOLYSI 1 (1-3); INDEX ICTERIC 1 (1-4); INDEX LIPEMIC 1 (1-3); POTASSIUM 4.4 mEq/L (3.5-5.1); SODIUM 142 mEq/L (136-145)
[2022-10-13 10:45] LABS: BASOPHILS % 0.7 % (0.0-2.0); DIFFERENTIAL COMMENT 0; EOSINOPHILS % 1.1 % (0.0-5.0); HEMATOCRIT. 25.3 % (36.0-48.0); LYMPHOCYTES % 25.5 % (20.0-50.0); MEAN CORPUSCULAR HEMOGLOBIN 31.8 pg (28.0-32.0); MEAN CORPUSCULAR HGB CONC 31.8 g/dL (31.0-37.0); MEAN CORPUSCULAR VOLUME 100.2 fL (81.0-99.0); MEAN PLATELET VOLUME 7.7 fl (7.4-10.4); MONOCYTES % 7.7 % (2.0-8.0); PLATELET 226 x1000/uL (130-400); RED BLOOD CELL COUNT 2.53 mill/uL (4.2-5.4); RED CELL DISTRIBUTION WIDTH 17.3 % (11.6-14.6); WHITE BLOOD COUNT 10.7 x1000/uL (4.5-11.0)
[2022-10-13 10:51] LABS: LACTIC ACID 5.8 mmol/L (0.4-2.0)
[2022-10-13 10:52] LABS: ALANINE AMINOTRANSFERASE 17 IU/L (13-61); ALBUMIN 3.1 g/dL (3.4-5.0); ASPARTATE AMINOTRANSFERASE 15 IU/L (15-37); BILIRUBIN TOTAL 0.5 mg/dL (0.1-1.0); CALCIUM 8.4 mg/dL (8.5-10.1); CARBON DIOXIDE 22 mEq/L (21-32); CREATININE 1.4 mg/dL (0.6-1.3); GLUCOSE 158 mg/dL (70-105); NT PRO B-TYPE NATRIURETIC PEP 2967 pg/mL (5-125); PROTEIN TOTAL 6.2 g/dL (6.0-8.3); TROPONIN I HIGH SENSITIVITY 51 ng/L (<54); UREA NITROGEN BLOOD 51 mg/dL (7-21)
[2022-10-13 10:56] LABS: INR 1.1; PARTIAL THROMBOPLASTIN TIME < 21.0 sec (23.4-31.0); PROTHROMBIN TIME 11.7 sec (9.6-11.0)
[2022-10-13] MEDS ORDERED: CEFTRIAXONE 2GM/50ML (ADDEASE) 50 ML IV ONE (11:30)
[2022-10-13] MEDS ORDERED: SODIUM CHLORIDE 0.9% 250 ML IV ONE ×2 (11:30→12:30)
[2022-10-13] MEDS ORDERED: CEFTRIAXONE 2 G in DEXTROSE 5% WATER 50 ML IV NR (12:00)
[2022-10-13 12:23] LABS: TROPONIN I HIGH SENSITIVITY 56 ng/L (<54)
[2022-10-13] MEDS ORDERED: MORPHINE SULFATE 2 MG/ML CPJ (NOT FOR IM USE) IV ONE (13:15)
[2022-10-13] MEDS ORDERED: IPRATROPIUM/ALBUTEROL 0.5-3(2.5)MG/3ML NEB HHN PRN (17:30)
[2022-10-13 17:50] LABS: BG BASE EXCESS -6.4 mmol/L (-2.0-2.0); BG CARBOXYHEMOGLOBIN 0.3 % (0.5-1.5); BG DEOXYHEMOGLOBIN 6.5 % (0.0-5.0); BG HCO3 ACT 17.7 mmol/L (22.0-26.0); BG METHEMOGLOBIN 0.2 % (0.0-1.5); BG OXYGEN SATURATION 93.5 % (92.0-98.5); BG PH 7.389 (7.350-7.450); BG PO2 74.2 mmHg (75.0-100.0); BG SAMPLE SITE RIGHT RADIAL; BG TOTAL HEMOGLOBIN 9.3 g/dL (12.0-18.0); BG VENT MODE NASAL CANNULA
[2022-10-13] MEDS: SUCRALFATE 1 G/10 ML UDC PO SCH ×3 (17:50→19:53)
[2022-10-13] MEDS: PANTOPRAZOLE SODIUM 40 MG/VIAL IV SCH (18:22)
[2022-10-13] MEDS: MORPHINE SULFATE 2 MG/ML CPJ (NOT FOR IM USE) IV SCH ×2 (18:23→19:52)
[2022-10-13] MEDS ORDERED: NALOXONE HCL 0.4MG/ML VIAL IV PRN (19:45)
[2022-10-13] MEDS ORDERED: DIGOXIN 500MCG/2ML AMP IV NR (20:11)
[2022-10-13] MEDS: ONDANSETRON HCL 4MG/2ML INJ IV PRN (21:03)
[2022-10-13 21:04] LABS: HEMATOCRIT 27.6 % (36.0-48.0); HEMOGLOBIN 8.9 g/dL (12.0-16.0); MEAN CORPUSCULAR HEMOGLOBIN 31.5 pg (28.0-32.0); MEAN CORPUSCULAR HGB CONC 32.3 g/dL (31.0-37.0); MEAN CORPUSCULAR VOLUME 97.6 fL (81.0-99.0); PLATELET 206 x1000/uL (130-400); RED BLOOD CELL COUNT 2.83 mill/uL (4.2-5.4); RED CELL DISTRIBUTION WIDTH 17.9 % (11.6-14.6); WHITE BLOOD COUNT 7.9 x1000/uL (4.5-11.0)
[2022-10-13] MEDS: IPRATROPIUM/ALBUTEROL 0.5-3(2.5)MG/3ML NEB HHN SCH (21:10)
[2022-10-13] MEDS: BUDESONIDE 0.5MG/2ML NEB HHN SCH (21:10)
[2022-10-14] VITALS (58 sets, daily range): BP systolic 69–129; BP diastolic 26–66; PULSE 58–133; RESP 11–37; TEMP 98–99.6; O2SAT 92–100
[2022-10-14] MEDS ORDERED: DIGOXIN 500MCG/2ML AMP IV NR (00:15)
[2022-10-14] MEDS: ONDANSETRON HCL 4MG/2ML INJ IV PRN (00:37)
[2022-10-14] MEDS: MORPHINE SULFATE 2 MG/ML CPJ (NOT FOR IM USE) IV SCH ×2 (00:37→06:24)
[2022-10-14] MEDS ORDERED: CEFTRIAXONE 1GM PREMIX 50 ML IV SCH (01:00)
[2022-10-14 01:29] LABS: HEMATOCRIT 30.1 % (36.0-48.0); HEMOGLOBIN 9.7 g/dL (12.0-16.0)
[2022-10-14] MEDS: IPRATROPIUM/ALBUTEROL 0.5-3(2.5)MG/3ML NEB HHN SCH ×4 (01:44→12:32)
[2022-10-14 06:42] LABS: HEMATOCRIT 29.7 % (36.0-48.0)
[2022-10-14] MEDS: SUCRALFATE 1 G/10 ML UDC PO SCH ×4 (07:50→20:21)
[2022-10-14] MEDS: BUDESONIDE 0.5MG/2ML NEB HHN SCH (08:37)
[2022-10-14] MEDS: PANTOPRAZOLE SODIUM 40 MG/VIAL IV SCH ×2 (08:46→18:36)
[2022-10-14 08:50] LABS: BG BASE EXCESS -6.6 mmol/L (-2.0-2.0); BG CARBOXYHEMOGLOBIN 0.3 % (0.5-1.5); BG DEOXYHEMOGLOBIN 5.6 % (0.0-5.0); BG FRACTION INSPIRED OXYGEN 100; BG HCO3 ACT 17.6 mmol/L (22.0-26.0); BG METHEMOGLOBIN 0.3 % (0.0-1.5); BG OXYGEN SATURATION 94.4 % (92.0-98.5); BG OXYHEMOGLOBIN 93.8 % (94.0-97.0); BG PH 7.386 (7.350-7.450); BG PO2 81.9 mmHg (75.0-100.0); BG SAMPLE SITE RIGHT BRACHIAL; BG TOTAL HEMOGLOBIN 8.3 g/dL (12.0-18.0); BG VENT MODE MASK - NRB
[2022-10-14] MEDS ORDERED: CEFTRIAXONE 1,000 MG in DEXTROSE 5% WATER 50 ML IV SCH (12:00)
[2022-10-14 13:36] LABS: HEMOGLOBIN 8.3 g/dL (12.0-16.0)
[2022-10-14] MEDS ORDERED: BISACODYL 10MG SUPP PR PRN (18:15)
[2022-10-14] MEDS ORDERED: SODIUM CHLORIDE 0.9% 1,000 ML IV SCH (19:00)
[2022-10-14] MEDS ORDERED: LACTULOSE 20G/30ML UDC PO PRN (21:00)
[2022-10-14] MEDS ORDERED: FUROSEMIDE 40MG/4ML VIAL IVP NR (23:00)
[2022-10-15] VITALS: BP 129/66; PULSE 70; RESP 20; TEMP 98.2
[2022-10-15 00:55] LABS: HEMATOCRIT 25.4 % (36.0-48.0); HEMOGLOBIN 7.7 g/dL (12.0-16.0)
[2022-10-15 04:00] VITALS: BP 148/66; PULSE 90; RESP 20; TEMP 98.4
[2022-10-15 06:12] LABS: BASOPHILS % 0.2 % (0.0-2.0); EOSINOPHILS % 1.1 % (0.0-5.0); HEMATOCRIT. 26.9 % (36.0-48.0); HEMOGLOBIN. 8.2 g/dL (12.0-16.0); LYMPHOCYTES % 8.3 % (20.0-50.0); MEAN CORPUSCULAR HEMOGLOBIN 32.5 pg (28.0-32.0); MEAN CORPUSCULAR HGB CONC 30.5 g/dL (31.0-37.0); MEAN CORPUSCULAR VOLUME 106.4 fL (81.0-99.0); MEAN PLATELET VOLUME 8.6 fl (7.4-10.4); MONOCYTES % 7.6 % (2.0-8.0); NEUTROPHILS % 82.8 % (40.0-76.0); PLATELET 178 x1000/uL (130-400); RED BLOOD CELL COUNT 2.53 mill/uL (4.2-5.4); RED CELL DISTRIBUTION WIDTH 20.2 % (11.6-14.6); WHITE BLOOD COUNT 6.7 x1000/uL (4.5-11.0)
[2022-10-15 06:17] LABS: INR 2.6
[2022-10-15 06:23] LABS: DIFFERENTIAL COMMENT 1
[2022-10-15] MEDS: SUCRALFATE 1 G/10 ML UDC PO SCH (07:10)
[2022-10-15 07:44] LABS: CHLORIDE 114 mEq/L (98-107); INDEX HEMOLYSI 3 (1-3); INDEX ICTERIC 1 (1-4); INDEX LIPEMIC 1 (1-3); SODIUM 144 mEq/L (136-145)
[2022-10-15 07:52] LABS: ALANINE AMINOTRANSFERASE 325 IU/L (13-61); ALBUMIN 2.2 g/dL (3.4-5.0); ASPARTATE AMINOTRANSFERASE 508 IU/L (15-37); BILIRUBIN TOTAL 1.3 mg/dL (0.1-1.0); CALCIUM 8.1 mg/dL (8.5-10.1); CARBON DIOXIDE 13 mEq/L (21-32); CREATININE 2.6 mg/dL (0.6-1.3); PROTEIN TOTAL 4.9 g/dL (6.0-8.3); UREA NITROGEN BLOOD 78 mg/dL (7-21)
[2022-10-15 08:00] VITALS: BP 97/39; PULSE 67; RESP 20; TEMP 97.8
[2022-10-15 08:14] LABS: GLUCOSE 31 mg/dL (70-105); POTASSIUM 6.4 mEq/L (3.5-5.1)
[2022-10-15] MEDS ORDERED: DEXTROSE 50% WATER 50ML SYRINGE IV NR (08:30)
[2022-10-15] MEDS ORDERED: DEXT 5%/0.9% NACL 1,000 ML IV SCH (08:30)
[2022-10-15] MEDS ORDERED: SODIUM POLYSTYRENE SULFONATE 15 G/60 ML BOT PO NR (08:30)
[2022-10-15] MEDS: PANTOPRAZOLE SODIUM 40 MG/VIAL IV SCH (08:46)
[2022-10-15] MEDS ORDERED: BISACODYL 5MG TABLET PO SCH (09:00)
[2022-10-15] MEDS ORDERED: PHYTONADIONE 10MG/ML AMP SUBCUT SCH (09:00)
[2022-10-15] MEDS ORDERED: HYDROMORPHONE HCL/PF 2MG/ML CPJ IV NR (09:45)
[2022-10-15 10:12] VITALS: BP 148/66
[2022-10-15 10:16] VITALS: PULSE 116; RESP 22; O2SAT 88
[2022-10-15] MEDS ORDERED: CARVEDILOL 3.125 MG TABLET PO SCH (11:00)
[2022-10-15] MEDS ORDERED: DEXT 10% WATER 1,000 ML IV SCH ×2 (12:00→12:30)
[2022-10-15] MEDS ORDERED: SODIUM CHLORIDE 0.9% 1,000 ML IV STA (13:35)
[2022-10-15] MEDS ORDERED: PIPERACILLIN/TAZOBACTAM 3.375 G in DEXTROSE 5% WATER 50 ML IV SCH (14:00)
[2022-10-15] MEDS ORDERED: ATORVASTATIN CALCIUM 20MG TABLET PO SCH (21:00)
== END 2022-10-15 12:40 | DRG 377 ==
LOC: ER 09:14 → EDBEDREQTM 12:29 → EDBEDREQ 12:29 → EDBEDREQSVC 12:29 → CVICU 16:56 → 8WST 10-14 13:42
PROVIDERS: ADMIT Internal Medicine; ATTEND Internal Medicine
PROC: 30233N1 Transfusion of Nonautologous Red Blood Cells into Peripheral Vein, Percutaneous Approach (ICD-10-PCS; principal; 2022-10-13)
PROC: 5A12012 Performance of Cardiac Output, Single, Manual (ICD-10-PCS; 2022-10-15)
PROC: 0BH17EZ Insertion of Endotracheal Airway into Trachea, Via Natural or Artificial Opening (ICD-10-PCS; 2022-10-15)
DX: K92.0 Hematemesis (principal); J18.9 Pneumonia, unspecified organism; J96.00 Acute respiratory failure, unspecified whether with hypoxia or hypercapnia; N17.9 Acute kidney failure, unspecified; I13.0 Hypertensive heart and chronic kidney disease with heart failure and stage 1 through stage 4 chronic kidney disease, or unspecified chronic kidney disease; E44.1 Mild protein-calorie malnutrition; E87.20 Acidosis, unspecified; J44.0 Chronic obstructive pulmonary disease with (acute) lower respiratory infection; L97.929 Non-pressure chronic ulcer of unspecified part of left lower leg with unspecified severity; Z66 Do not resuscitate; D64.9 Anemia, unspecified; E11.22 Type 2 diabetes mellitus with diabetic chronic kidney disease; E11.42 Type 2 diabetes mellitus with diabetic polyneuropathy; E11.51 Type 2 diabetes mellitus with diabetic peripheral angiopathy without gangrene; E78.5 Hyperlipidemia, unspecified; I25.10 Atherosclerotic heart disease of native coronary artery without angina pectoris; I25.5 Ischemic cardiomyopathy; I48.0 Paroxysmal atrial fibrillation; J44.9 Chronic obstructive pulmonary disease, unspecified; K57.90 Diverticulosis of intestine, part unspecified, without perforation or abscess without bleeding; K44.9 Diaphragmatic hernia without obstruction or gangrene; E11.649 Type 2 diabetes mellitus with hypoglycemia without coma; E87.5 Hyperkalemia; E11.65 Type 2 diabetes mellitus with hyperglycemia; F17.210 Nicotine dependence, cigarettes, uncomplicated; I25.2 Old myocardial infarction; I65.22 Occlusion and stenosis of left carotid artery; I50.9 Heart failure, unspecified; K52.9 Noninfective gastroenteritis and colitis, unspecified; I71.40 Abdominal aortic aneurysm, without rupture, unspecified; K62.89 Other specified diseases of anus and rectum; Z68.20 Body mass index [BMI] 20.0-20.9, adult; L98.492 Non-pressure chronic ulcer of skin of other sites with fat layer exposed; N18.9 Chronic kidney disease, unspecified; R26.9 Unspecified abnormalities of gait and mobility; M79.675 Pain in left toe(s); R13.10 Dysphagia, unspecified; Z79.01 Long term (current) use of anticoagulants; Z20.822 Contact with and (suspected) exposure to COVID-19; Z82.49 Family history of ischemic heart disease and other diseases of the circulatory system; Z86.718 Personal history of other venous thrombosis and embolism; Z86.73 Personal history of transient ischemic attack (TIA), and cerebral infarction without residual deficits; Z88.0 Allergy status to penicillin; Z89.511 Acquired absence of right leg below knee; Z99.3 Dependence on wheelchair; Z99.81 Dependence on supplemental oxygen
CPT/HCPCS: 36415; 36600; 71045; 74176; 76700; 80053; 82375; 82805; 82962; 83605; 83880; 84484; 85014; 85018; 85025; 85027; 86850; 86900; 86920; 87426; 93005; 94640; 99285; C9113; J0696; J1160; J1170; J1940; J2270; J2405; J2543; J7050; J7060; J7626; P9016